=== PATIENT | female | born 1990 | race Caucasian/White ===

== ENCOUNTER 2016-07-08 18:28 | Emergency (ER) | payer OTHER ==
[~2016-07-08 18:28] MED LIST: ALLE25CA OR; CELE20TA OR; NEUR600T OR; NICO21DI4 TD; No Historical Meds; TRAZ100T OR
[2016-07-08] MEDS ORDERED: IBUPROFEN 400 MG TAB As Ordered ONE (19:26)
[2016-07-08] MEDS ORDERED: ACETAMINOPHEN 325 MG TAB As Ordered ONE (19:27)
[2016-07-08 19:48] LABS: ALBUMIN 3.2 GM/DL (3.2-5.2); ALKALINE PHOSPHATASE 106 U/L (45-117); ALT/SGPT 15 U/L (12-78); ANION GAP 8 MEQ/L (8-16); AST/SGOT 10 U/L (15-37); BILIRUBIN,DIRECT 0.2 MG/DL (0.0-0.2); BILIRUBIN,TOTAL 0.6 MG/DL (0.2-1.0); BLOOD UREA NITROGEN 8 MG/DL (7-18); CALCIUM LEVEL 8.5 MG/DL (8.5-10.1); CARBON DIOXIDE LEVEL 26 MEQ/L (21-32); CHLORIDE LEVEL 104 MEQ/L (98-107); CREATININE FOR GFR 0.93 MG/DL (0.55-1.02); GLOMERULAR FILTRATION RATE > 60.0 (>60); GLUCOSE, FASTING 112 MG/DL (70-105); POTASSIUM SERUM 3.6 MEQ/L (3.5-5.1); SODIUM LEVEL 138 MEQ/L (136-145); TOTAL PROTEIN 7.8 GM/DL (6.4-8.2)
[2016-07-08 19:49] LABS: BASO # 0.3 K/mm3 (0.0-0.2); BASO % 1.5 % (0.0-1.0); EOS % 0.2 % (0.0-3.0); LARGE UNSTAINED CELL # 0.2 K/mm3 (0.0-0.4); LARGE UNSTAINED CELL % 1.2 % (0.0-4.0); LYMPH # 2.2 K/mm3 (1.5-6.5); LYMPH % 11.3 % (24.0-44.0); MEAN CORPUSCULAR HEMOGLOBIN 27.8 pg (27.0-33.0); MEAN CORPUSCULAR HGB CONC 33.3 g/dl (32.0-36.5); MEAN CORPUSCULAR VOLUME 83.5 fl (80.0-96.0); MONO # 1.2 K/mm3 (0.0-0.8); MONO % 6.7 % (0.0-5.0); NEUTROPHILS % 79.2 % (36.0-66.0); PLATELET COUNT, AUTOMATED 189 k/mm3 (150-450); RED CELL DISTRIBUTION WIDTH 14.4 % (11.5-14.5); WHITE BLOOD COUNT 17.7 K/mm3 (4.0-10.0)
[2016-07-08 19:52] LABS: CONTROL LINE HCG INT CTR LINE PRESENT
[2016-07-08] MEDS ORDERED: CIPROFLOXACIN 500 MG TAB As Ordered ONE (20:46)
--- NOTE | 2016-07-08 20:57 | EDDOCDS ---
Physician Documentation [facility] [place] [facility] Name: Jessi Perkins Age: 26 yrs Sex: Female : 1990 Arrival Date: 07/08/2016 Time: 18:28 Bed TR8 Private MD: No Pcp Disposition: 07/08/16 20:42 Patient has left against medical advice. Impression: Fever presenting with conditions classified elsewhere, Urinary tract infection, site not specified, Tachycardia, unspecified, Unspecified abdominal pain - RIGHT SIDED. - Patients states they are going to Home/Self Care. - Condition is Unchanged. - Discharge Instructions: Fever, Adult, Urinary Tract Infection. - Prescriptions for Cipro 500 mg Oral Tablet - take 1 tablet by ORAL route every 12 hours; 14 tablet. Medication Reconciliation, Local Pharmacy Hours form. Follow up: Emergency Department; When: As needed; Reason: Worsening of conditions. Follow up: [facility]; When: Call to arrange an appointment; Reason: Recheck today's complaints, Continuance of care, To establish care. - Problem is new. - Symptoms are unchanged. - Notes: IT IS UNCERTAIN IF THE URINARY TRACT INFECTION IS THE ONLY CAUSE OF YOUR SYMPTOMS. YOU REFUSED THE CT SCAN TODAY SO YOUR SYMPTOMS COULD NOT FULLY BE DIAGNOSED. IT IS RECOMMENDED YOU FOLLOW UP WITH PRIMARY CARE OR RETURN TO THE ER SOON POSSIBLE TO FURTHER WORK UP AND DIAGNOSE YOUR SYMPTOMS. Historical: - Allergies: no known allergies; - Home Meds: 1. Depo Shot - PMHx: none; - PSHx: none; - Social history: Smoking status: Patient uses tobacco products, heavy tobacco smoker. No barriers to communication noted. - Family history: Not pertinent. - : The pt / caregiver states he / she is not on anticoagulants. Home medication list is obtained from the patient. - Exposure Risk Screening:: None identified. 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 2 in. (157.48 cm) (R); Pain 7/10; 19:24 BP 120 / 85; Pulse 153; Resp 18; Temp 101.5(O); Pulse Ox 99% on R/A; Pain 7/10; sew 20:43 BP 121 / 76; Pulse 142; Resp 16; Temp 98.4; Pulse Ox 97% on R/A; Pain 7/10; sew 18:31 Body Mass Index 21.58 (53.52 kg, 157.48 cm) mt4 MDM: 18:41 -Blood Culture (Adults Only), peripheral from different site, or from device/port/PICC kr3 etc. if present ordered. 18:41 If pre-RCE wait time >60 minutes, inform reg. staff to do full reg ordered. kr3 18:41 If pt is female >10yo <50yo order UCG ordered. kr3 18:41 Undress patient appropriately for examination ordered. kr3 18:42 -Blood Culture Ordered. EDMS 18:42 BMP Ordered. EDMS 18:42 CBC with Diff Ordered. EDMS 18:42 HCG,Serum Qualitative Ordered. EDMS 18:42 Lipase Ordered. EDMS 18:42 Liver Profile Ordered. EDMS 18:42 Urinalysis Ordered. EDMS 18:42 Urine Culture Ordered. EDMS 18:43 -Blood Culture (Adults Only), peripheral from different site, or from device/port/PICC sew etc. if present complete. 18:43 Vital Signs ordered. dt4 18:43 UCG by Nursing ordered. dt4 18:44 BLOOD CULTURES Ordered. EDMS 18:48 Lactic Acid (Hopkins tube on ice) Ordered. EDMS 19:25 Ibuprofen 400 mg PO once ordered. dt4 19:25 Acetaminophen Tablet 975 mg PO once ordered. dt4 20:28 Vital Signs ordered. dt4 20:40 Ciprofloxacin 500 mg PO once ordered. dt4 20:48 ED course: PT HAD SIGNED AMA PAPERWORK PRIOR TO THIS RN ER EVALUATING THIS PT. PT dt4 ASKED, "SO ARE YOU GOING TO TELL ME WHAT'S WRONG WITH ME?" ADVISED THAT PT HAS A UTI ON LABWORK THAT WAS COLLECTED PRIOR TO PROVIDER EVALUATION. ON EXAM, PT HAS TACHYCARDIA AND RIGHT FLANK PAIN WITH RUQ AND RLQ PAIN. ADVISED UNABLE TO FURTHER EVALUATE FOR GALLSTONES/KIDNEY STONES/PYELONEPHRITIS WITHOUT FURTHER IMAGING. PT STATES HER RIDE IS WAITING FOR HER OUTSIDE AND THAT SHE HAS TO GO AND WILL HAVE TO RETURN TOMORROW. . 20:53 Financial registration complete. [email or web address] 20:54 [facility] Payment Agreement was scanned into [employer] and attached to record. [email or web address] Administered Medications: 19:29 Drug: Ibuprofen 400 mg [ibuprofen 400 mg tablet (1 tabs)] Route: PO; cz 19:29 Drug: Acetaminophen 975 mg [acetaminophen 325 mg tablet (3 tabs)] Route: PO; cz 20:50 Drug: Ciprofloxacin 500 mg [ciprofloxacin 500 mg tablet (1 tabs)] Route: PO; jf3 20:50 Follow up: Response: Pt left department before re-evaluation is appropriate jf3 Signatures: Dispatcher [employer] EDMS Jazmin PetersonRN RN kr3 Karolyn GraceRN RN [facility] Citlali Cedillo Diane, PA-C PAFatimah dt4 Moe LyonsRN RN jf3 Barbara Elizondo, Reg Reg ks16 Farzad Gibbons RN cz The chart was reviewed and I authenticate all verbal orders and agree with the evaluation and treatment provided.Corrections: (The following items were deleted from the chart) 18:38 18:36 Home Meds: none; [facility] Attachments: 20:54 [facility] Payment Agreement [email or web address] MTDD
--- NOTE | 2016-07-08 20:57 | EDDOCDS ---
Nurse's Notes [facility] Name: Jessi Perkins Age: 26 yrs Sex: Female : 1990 Arrival Date: 07/08/2016 Time: 18:28 Bed TR8 Private MD: No Pcp Diagnosis: Fever presenting with conditions classified elsewhere;Urinary tract infection, site not specified;Tachycardia, unspecified;Unspecified abdominal pain-RIGHT SIDED Presentation: 07/08 18:35 Presenting complaint: Patient states: right side pain for past three days, denies [facility] urinary symptoms. Acute neurological deficits are not present. Mechanism of Injury: No Mechanism of Injury. Adult Sepsis Screening: The patient does not have new or worsening altered mentation. Patient's respiratory rate is less than 22. Systolic blood pressure is greater than 100. Patient has a qSOFA score of 0- Negative Sepsis Screen. Suicide/Homicide risk assessment- the patient denies having any suicidal and/or homicidal ideations and does not present with any other emotional, behavioral or mental health complaints. Status: Patient is not a support services manager or dependent. Transition of care: patient was not received from another setting of care. 18:35 Acuity: ADRIANNE Level 3 [facility] 18:35 Method Of Arrival: Walkin/Carried/Asstd [facility] Triage Assessment: 18:36 General: Appears in no apparent distress, uncomfortable, Behavior is appropriate for [facility] age, cooperative. Pain: Location: posterior aspect of right lateral abdomen and anterior aspect of right lateral abdomen Pain currently is 7 out of 10 on a pain scale. HIV screening NA for this visit Offered previously. Respiratory: Airway is patent Respiratory effort is even, unlabored, Respiratory pattern is regular, symmetrical. GI: No deficits noted. : No deficits noted. Musculoskeletal: Range of motion intact in all extremities. 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 Depo Shot - PMHx: none; - PSHx: none; - Social history: Smoking status: Patient uses tobacco products, heavy tobacco smoker. No barriers to communication noted. - Family history: Not pertinent. - : The pt / caregiver states he / she is not on anticoagulants. Home medication list is obtained from the patient. - Exposure Risk Screening:: None identified. Screenin:50 Screening information is obtained from the patient. Fall risk: No risks identified. jf3 Assistance ADL's: requires no assistance with activities of daily living. Abuse/DV Screen: The patient / caregiver reports he/she is: not in a situation that causes fear, pain or injury. Nutritional screening: No deficits noted. Advance Directives: There is no active DNR order. home support is adequate. Assessment: 20:50 General: Appears in no apparent distress, comfortable, Behavior is cooperative. jf3 Neurological: Level of Consciousness is awake, alert, Oriented to person, place, time. Cardiovascular: Capillary refill < 3 seconds. Respiratory: Airway is patent Respiratory effort is even, unlabored, Respiratory pattern is regular, symmetrical. Derm: Skin is pink, warm & dry. Social Work Consult: 20:55 LWBS/AMA AMA: Patient is refusing further stabilizing treatment at [facility], although jfb offered treatment regardless of method of payment or ability to pay. Patient is aware that this action is being undertaken against the advice of the medical staff at [facility]. Pt. has capacity to understand the potential consequences of this choice. pt did notify ED staff. Patient / guardian did sign Refusal of Services form. Vital Signs: 18:31 BP 143 / 88 LA Sitting (auto/reg); Pulse 154 LA; Resp 18 S; Temp 100.5(O); Pulse Ox mt4 100% on R/A; Weight 53.52 kg (R); Height 5 ft. 2 in. (157.48 cm) (R); Pain 7/10; 19:24 BP 120 / 85; Pulse 153; Resp 18; Temp 101.5(O); Pulse Ox 99% on R/A; Pain 7/10; sew 20:43 BP 121 / 76; Pulse 142; Resp 16; Temp 98.4; Pulse Ox 97% on R/A; Pain 7/10; sew 18:31 Body Mass Index 21.58 (53.52 kg, 157.48 cm) mt4 Vitals: 18:31 Log In Time: July 08, 2016 at 18:28. RN notified that patient meets Red Flag mt4 criteria. ED Course: 18:30 Patient visited by Clara Alexander. mt4 18:30 Patient moved to Waiting mt4 18:30 Patient moved to Pre RCE mt4 18:31 No Pcp is Private Physician. mt4 18:36 Triage Initiated [facility] 18:42 Patient moved to PR sew 19:18 Patient visited by Citlali Cedillo. sew 19:18 Lactic Acid (Hopkins tube on ice) Sent. sew 19:18 BLOOD CULTURES Sent. sew 19:18 -Blood Culture Sent. sew 19:18 BMP Sent. sew 19:18 CBC with Diff Sent. sew 19:18 HCG,Serum Qualitative Sent. sew 19:18 Lipase Sent. sew 19:18 Liver Profile Sent. sew 19:18 Urinalysis Sent. sew 19:18 Urine Culture Sent. sew 19:18 Labs drawn. (by ED staff). Sent per order to lab. Labs/Blood culture drawn Urine sew collected. Clean catch specimen. Urine specimen sent to lab. 19:24 Patient visited by Citlali Cedillo. sew 19:30 Patient moved to Pre RCE cz 20:25 Patient moved to Triage 1 cz 20:26 Hannah Spears PA-C is [facility]. dt4 20:26 Joshua Dunbar DO is Attending Physician. dt4 20:26 Patient visited by Hannah Spears PA-C. dt4 20:42 [facility] is Referral Physician. dt4 20:44 Patient visited by Citlali Cedillo. sew 20:45 Patient moved to TR8 cz 20:50 The patient / caregiver is instructed regarding the plan of care and ED course. jf3 20:50 No IV's were initiated during this patient's visit. No procedures done that require jf3 assistance. 20:52 Patient name changed from Jessi\S\\S\Perkins\S\ to Jessi\S\ \S\Perkins. EDMS 20:54 [facility] Payment Agreement was scanned into [employer] and attached to record. [email or web address] Administered Medications: 19:29 Drug: Ibuprofen 400 mg [ibuprofen 400 mg tablet (1 tabs)] Route: PO; cz 19:29 Drug: Acetaminophen 975 mg [acetaminophen 325 mg tablet (3 tabs)] Route: PO; cz 20:50 Drug: Ciprofloxacin 500 mg [ciprofloxacin 500 mg tablet (1 tabs)] Route: PO; jf3 20:50 Follow up: Response: Pt left department before re-evaluation is appropriate jf3 Order Results: Lab Order: BAM; SPEC'M 07/08/16 19:12 Test: GLUCOSE, FASTING; Value: 112; Range: 70-105; Abnormal: Above high normal; Units: MG/DL; Status: F Test: BLOOD UREA NITROGEN; Value: 8; Range: 7-18; Units: MG/DL; Status: F Test: CREATININE FOR GFR; Value: 0.93; Range: 0.55-1.02; Units: MG/DL; Status: F Test: GLOMERULAR FILTRATION RATE; Value: > 60.0; Range: >60; Status: F Test: SODIUM LEVEL; Value: 138; Range: 136-145; Units: MEQ/L; Status: F Test: POTASSIUM SERUM; Value: 3.6; Range: 3.5-5.1; Units: MEQ/L; Status: F Test: CHLORIDE LEVEL; Value: 104; Range: 98-107; Units: MEQ/L; Status: F Test: CARBON DIOXIDE LEVEL; Value: 26; Range: 21-32; Units: MEQ/L; Status: F Test: ANION GAP; Value: 8; Range: 8-16; Units: MEQ/L; Status: F Test: CALCIUM LEVEL; Value: 8.5; Range: 8.5-10.1; Units: MG/DL; Status: F Test Note: ; Units are mL/min/1.73 m2 Chronic Kidney Disease Staging per NKF: Stage I & II GFR >=60 Normal to Mildly Decreased Stage III GFR 30-59 Moderately Decreased Stage IV GFR 15-29 Severely Decreased Stage V GFR <15 Very Little GFR Left ESRD GFR <15 on TRUCK DRIVING Lab Order: CBC with Diff; SPEC'M 07/08/16 19:14 Test: WHITE BLOOD COUNT; Value: 17.7; Range: 4.0-10.0; Abnormal: Above high normal; Units: K/mm3; Status: F Test: RED BLOOD COUNT; Value: 5.05; Range: 4.00-5.40; Units: M/mm3; Status: F Test: HEMOGLOBIN; Value: 14.0; Range: 12.0-16.0; Units: g/dl; Status: F Test: HEMATOCRIT; Value: 42.2; Range: 36.0-47.0; Units: %; Status: F Test: MEAN CORPUSCULAR VOLUME; Value: 83.5; Range: 80.0-96.0; Units: fl; Status: F Test: MEAN CORPUSCULAR HEMOGLOBIN; Value: 27.8; Range: 27.0-33.0; Units: pg; Status: F Test: MEAN CORPUSCULAR HGB CONC; Value: 33.3; Range: 32.0-36.5; Units: g/dl; Status: F Test: RED CELL DISTRIBUTION WIDTH; Value: 14.4; Range: 11.5-14.5; Units: %; Status: F Test: PLATELET COUNT, AUTOMATED; Value: 189; Range: 150-450; Units: k/mm3; Status: F Test: NEUTROPHILS %; Value: 79.2; Range: 36.0-66.0; Abnormal: Above high normal; Units: %; Status: F Test: LYMPH %; Value: 11.3; Range: 24.0-44.0; Abnormal: Below low normal; Units: %; Status: F Test: MONO %; Value: 6.7; Range: 0.0-5.0; Abnormal: Above high normal; Units: %; Status: F Test: EOS %; Value: 0.2; Range: 0.0-3.0; Units: %; Status: F Test: BASO %; Value: 1.5; Range: 0.0-1.0; Abnormal: Above high normal; Units: %; Status: F Test: LARGE UNSTAINED CELL %; Value: 1.2; Range: 0.0-4.0; Units: %; Status: F Test: NEUTROPHILS #; Value: 14.0; Range: 1.8-7.7; Abnormal: Above high normal; Units: K/mm3; Status: F Test: LYMPH #; Value: 2.2; Range: 1.5-6.5; Units: K/mm3; Status: F Test: MONO #; Value: 1.2; Range: 0.0-0.8; Abnormal: Above high normal; Units: K/mm3; Status: F Test: EOS #; Value: 0.0; Range: 0.0-0.50; Units: K/mm3; Status: F Test: BASO #; Value: 0.3; Range: 0.0-0.2; Abnormal: Above high normal; Units: K/mm3; Status: F Test: LARGE UNSTAINED CELL #; Value: 0.2; Range: 0.0-0.4; Units: K/mm3; Status: F Lab Order: HCG,Serum Qualitative; [facility] 07/08/16 19:12 Test: HCG, SERUM QUALITATIVE; Value: NEGATIVE; Range: NEGATIVE; Status: F Lab Order: Lipase; [facility] 07/08/16 19:12 Test: LIPASE; Value: 42; Range: 73-393; Abnormal: Below low normal; Units: U/L; Status: F Lab Order: Liver Profile; [facility] 07/08/16 19:12 Test: AST/SGOT; Value: 10; Range: 15-37; Abnormal: Below low normal; Units: U/L; Status: F Test: ALT/SGPT; Value: 15; Range: 12-78; Units: U/L; Status: F Test: ALKALINE PHOSPHATASE; Value: 106; Range: 45-117; Units: U/L; Status: F Test: BILIRUBIN,TOTAL; Value: 0.6; Range: 0.2-1.0; Units: MG/DL; Status: F Test: BILIRUBIN,DIRECT; Value: 0.2; Range: 0.0-0.2; Units: MG/DL; Status: F Test: TOTAL PROTEIN; Value: 7.8; Range: 6.4-8.2; Units: GM/DL; Status: F Test: ALBUMIN; Value: 3.2; Range: 3.2-5.2; Units: GM/DL; Status: F Test: ALBUMIN/GLOBULIN RATIO; Value: 0.70; Range: 1.00-1.93; Abnormal: Below low normal; Status: F Lab Order: Urinalysis; [facility] 07/08/16 19:12 Test: APPEARANCE, URINE; Value: HAZY; Range: CLEAR; Status: F Test: COLOR, URINE; Value: LEXIS; Range: YELLOW; Status: F Test: PH,URINE; Value: 6.0; Range: 5.0-9.0; Units: UNITS; Status: F Test: SPECIFIC GRAVITY URINE AUTO; Value: 1.020; Range: 1.002-1.035; Status: F Test: PROTEIN, URINE AUTO; Value: 1+; Range: NEGATIVE; Abnormal: Above high normal; Units: mg/dL; Status: F Test: GLUCOSE, URINE (UA) AUTO; Value: NEGATIVE; Range: NEGATIVE; Units: mg/dL; Status: F Test: KETONE, URINE AUTO; Value: NEGATIVE; Range: NEGATIVE; Units: mg/dL; Status: F Test: UROBILINOGEN, URINE AUTO; Value: 4.0; Range: 0.0-2.0; Abnormal: Above high normal; Units: mg/dL; Status: F Test: BILIRUBIN, URINE AUTO; Value: NEGATIVE; Range: NEGATIVE; Status: F Test: NITRITE, URINE AUTO; Value: NEGATIVE; Range: NEGATIVE; Status: F Test: LEUKOCYTE ESTERASE, URINE AUTO; Value: TRACE; Range: NEGATIVE; Abnormal: Above high normal; Status: F Test: BLOOD, URINE BLOOD; Value: NEGATIVE; Range: NEGATIVE; Status: F Test: WBC, URINE AUTO; Value: 33; Range: 0-3; Abnormal: Above high normal; Units: /HPF; Status: F Test: RBC, URINE AUTO; Value: 3; Range: 0-3; Units: /HPF; Status: F Test: BACTERIA, URINE AUTO; Value: 2+; Range: NEGATIVE; Abnormal: Above high normal; Status: F Test: SQUAMOUS EPITHELIAL CELL UR AU; Value: 22; Range: 0-6; Units: /HPF; Status: F Test: MUCUS, URINE; Value: MODERATE; Range: NEGATIVE; Status: F Test: HYALINE CAST, URINE AUTO; Value: 0; Range: 0-1; Units: /LPF; Status: F Lab Order: Lactic Acid (Hopkins tube on ice); SPEC'M 07/08/16 19:12 Test: LACTIC ACID LEVEL, LACTATE; Value: 1.6; Range: 0.4-2.0; Units: MMOL/L; Status: F Outcome: 20:42 Patient left against medical advice. dt4 20:52 Discharge Assessment: patient administered narcotics - no. The following High Risk 3 Discharge criteria are identified: Yes, PSA notified, charge nurse notified. The patient is leaving AMA: AMA form signed, Notification of AMA status is made to the charge nurse, the mental health social worker. Condition: stable. Discharge instructions given to patient, Instructed on discharge instructions, follow up and referral plans. medication usage, Demonstrated understanding of instructions, medications. No special radiology studies were completed. Property :Personal belongings accompany Pt. 20:56 Patient left the ED. jf3 Signatures: Dispatcher [employer] EDMS Farzad Gibbons, PRO RN cindi Alexander, Clara mt4 Birdie Spears, PSA PSA Karolyn George RN RN [facility] Mamadou, Hannah Artis, PAFatimah PAFatimah dt4 Moe Lyons RN RN jf3 Barbara Elizondo, Reg Reg [email or web address] Corrections: (The following items were deleted from the chart) 18:38 18:36 Home Meds: none; [facility] MTDD
--- NOTE | 2016-07-10 21:57 | EDDOCDS ---
Physician Documentation [facility] Name: Jessi Perkins Age: 26 yrs Sex: Female : 1990 Arrival Date: 07/08/2016 Time: 18:28 Bed TR8 Private MD: No Pcp Disposition: 07/08/16 20:42 Patient has left against medical advice. Impression: Fever presenting with conditions classified elsewhere, Urinary tract infection, site not specified, Tachycardia, unspecified, Unspecified abdominal pain - RIGHT SIDED. - Patients states they are going to Home/Self Care. - Condition is Unchanged. - Discharge Instructions: Fever, Adult, Urinary Tract Infection. - Prescriptions for Cipro 500 mg Oral Tablet - take 1 tablet by ORAL route every 12 hours; 14 tablet. Medication Reconciliation, Local Pharmacy Hours form. Follow up: Emergency Department; When: As needed; Reason: Worsening of conditions. Follow up: [facility]; When: Call to arrange an appointment; Reason: Recheck today's complaints, Continuance of care, To establish care. - Problem is new. - Symptoms are unchanged. - Notes: IT IS UNCERTAIN IF THE URINARY TRACT INFECTION IS THE ONLY CAUSE OF YOUR SYMPTOMS. YOU REFUSED THE CT SCAN TODAY SO YOUR SYMPTOMS COULD NOT FULLY BE DIAGNOSED. IT IS RECOMMENDED YOU FOLLOW UP WITH PRIMARY CARE OR RETURN TO THE ER SOON POSSIBLE TO FURTHER WORK UP AND DIAGNOSE YOUR SYMPTOMS. Historical: - Allergies: no known allergies; - Home Meds: 1. Depo Shot - PMHx: none; - PSHx: none; - Social history: Smoking status: Patient uses tobacco products, heavy tobacco smoker. No barriers to communication noted. - Family history: Not pertinent. - : The pt / caregiver states he / she is not on anticoagulants. Home medication list is obtained from the patient. - Exposure Risk Screening:: None identified. 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 2 in. (157.48 cm) (R); Pain 7/10; 19:24 BP 120 / 85; Pulse 153; Resp 18; Temp 101.5(O); Pulse Ox 99% on R/A; Pain 7/10; sew 20:43 BP 121 / 76; Pulse 142; Resp 16; Temp 98.4; Pulse Ox 97% on R/A; Pain 7/10; sew 18:31 Body Mass Index 21.58 (53.52 kg, 157.48 cm) mt4 MDM: 18:41 -Blood Culture (Adults Only), peripheral from different site, or from device/port/PICC kr3 etc. if present ordered. 18:41 If pre-RCE wait time >60 minutes, inform reg. staff to do full reg ordered. kr3 18:41 If pt is female >10yo <50yo order UCG ordered. kr3 18:41 Undress patient appropriately for examination ordered. kr3 18:42 -Blood Culture Ordered. EDMS 18:42 BMP Ordered. EDMS 18:42 CBC with Diff Ordered. EDMS 18:42 HCG,Serum Qualitative Ordered. EDMS 18:42 Lipase Ordered. EDMS 18:42 Liver Profile Ordered. EDMS 18:42 Urinalysis Ordered. EDMS 18:42 Urine Culture Ordered. EDMS 18:43 -Blood Culture (Adults Only), peripheral from different site, or from device/port/PICC sew etc. if present complete. 18:43 Vital Signs ordered. dt4 18:43 UCG by Nursing ordered. dt4 18:44 BLOOD CULTURES Ordered. EDMS 18:48 Lactic Acid (Hopkins tube on ice) Ordered. EDMS 19:25 Ibuprofen 400 mg PO once ordered. dt4 19:25 Acetaminophen Tablet 975 mg PO once ordered. dt4 20:28 Vital Signs ordered. dt4 20:40 Ciprofloxacin 500 mg PO once ordered. dt4 20:48 ED course: PT HAD SIGNED AMA PAPERWORK PRIOR TO THIS DEVELOPMENT REPRESENTATIVE EVALUATING THIS PT. PT dt4 ASKED, "SO ARE YOU GOING TO TELL ME WHAT'S WRONG WITH ME?" ADVISED THAT PT HAS A UTI ON LABWORK THAT WAS COLLECTED PRIOR TO PROVIDER EVALUATION. ON EXAM, PT HAS TACHYCARDIA AND RIGHT FLANK PAIN WITH RUQ AND RLQ PAIN. ADVISED UNABLE TO FURTHER EVALUATE FOR GALLSTONES/KIDNEY STONES/PYELONEPHRITIS WITHOUT FURTHER IMAGING. PT STATES HER RIDE IS WAITING FOR HER OUTSIDE AND THAT SHE HAS TO GO AND WILL HAVE TO RETURN TOMORROW. . 20:53 Financial registration complete. [email or web address] 20:54 [facility] Agreement was scanned into [employer] and attached to record. [email or web address] 07/09 15:49 T-Sheet-- Draft Copy was scanned into [employer] and attached to record. klr 15:56 Refusal of Services was scanned into [employer] and attached to record. kf3 Administered Medications: 07/08 19:29 Drug: Ibuprofen 400 mg [ibuprofen 400 mg tablet (1 tabs)] Route: PO; cz 19:29 Drug: Acetaminophen 975 mg [acetaminophen 325 mg tablet (3 tabs)] Route: PO; cz 20:50 Drug: Ciprofloxacin 500 mg [ciprofloxacin 500 mg tablet (1 tabs)] Route: PO; jf3 20:50 Follow up: Response: Pt left department before re-evaluation is appropriate jf3 Signatures: Dispatcher [employer] EDJazmin LamaRN RN kr3 Abelardo Cheung, Reg Reg kf3 Karolyn Grace RN RN [facility] Citlali Cedillo Diane, PA-C PA-C dt4 Moe Lyons RN RN jf3 Barbara Elizondo, Reg Reg ks16 Iman Duran Calvin RN cz The chart was reviewed and I authenticate all verbal orders and agree with the evaluation and treatment provided.Corrections: (The following items were deleted from the chart) 18:38 18:36 Home Meds: none; formerly [facility] Attachments: 20:54 [facility] Payment Agreement 07/09 15:49 T-Sheet-- Draft Copy klr Chart Complete MTDD
--- NOTE | 2016-07-10 21:57 | EDDOCDS ---
Nurse's Notes [facility] Name: Jessi Perkins Age: 26 yrs Sex: Female : 1990 Arrival Date: 07/08/2016 Time: 18:28 Bed TR8 Private MD: No Pcp Diagnosis: Fever presenting with conditions classified elsewhere;Urinary tract infection, site not specified;Tachycardia, unspecified;Unspecified abdominal pain-RIGHT SIDED Presentation: 07/08 18:35 Presenting complaint: Patient states: right side pain for past three days, denies [facility] urinary symptoms. Acute neurological deficits are not present. Mechanism of Injury: No Mechanism of Injury. Adult Sepsis Screening: The patient does not have new or worsening altered mentation. Patient's respiratory rate is less than 22. Systolic blood pressure is greater than 100. Patient has a qSOFA score of 0- Negative Sepsis Screen. Suicide/Homicide risk assessment- the patient denies having any suicidal and/or homicidal ideations and does not present with any other emotional, behavioral or mental health complaints. Status: Patient is not a human services case manager or dependent. Transition of care: patient was not received from another setting of care. 18:35 Acuity: [facility] 18:35 Method Of Arrival: [facility]in[facility]Carried[facility] Triage Assessment: 18:36 General: Appears in no apparent distress, uncomfortable, Behavior is appropriate for [facility] age, cooperative. Pain: Location: posterior aspect of right lateral abdomen and anterior aspect of right lateral abdomen Pain currently is 7 out of 10 on a pain scale. HIV screening NA for this visit Offered previously. Respiratory: Airway is patent Respiratory effort is even, unlabored, Respiratory pattern is regular, symmetrical. GI: No deficits noted. : No deficits noted. Musculoskeletal: Range of motion intact in all extremities. 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 Depo Shot - PMHx: none; - PSHx: none; - Social history: Smoking status: Patient uses tobacco products, heavy tobacco smoker. No barriers to communication noted. - Family history: Not pertinent. - : The pt / caregiver states he / she is not on anticoagulants. Home medication list is obtained from the patient. - Exposure Risk Screening:: None identified. Screenin:50 Screening information is obtained from the patient. Fall risk: No risks identified. jf3 Assistance ADL's: requires no assistance with activities of daily living. Abuse/DV Screen: The patient / caregiver reports he/she is: not in a situation that causes fear, pain or injury. Nutritional screening: No deficits noted. Advance Directives: There is no active DNR order. home support is adequate. Assessment: 20:50 General: Appears in no apparent distress, comfortable, Behavior is cooperative. jf3 Neurological: Level of Consciousness is awake, alert, Oriented to person, place, time. Cardiovascular: Capillary refill < 3 seconds. Respiratory: Airway is patent Respiratory effort is even, unlabored, Respiratory pattern is regular, symmetrical. Derm: Skin is pink, warm & dry. Social Work Consult: 20:55 LWBS/AMA AMA: Patient is refusing further stabilizing treatment at [facility], although jfb offered treatment regardless of method of payment or ability to pay. Patient is aware that this action is being undertaken against the advice of the medical staff at [facility]. Pt. has capacity to understand the potential consequences of this choice. pt did notify ED staff. Patient / guardian did sign Refusal of Services form. Vital Signs: 18:31 BP 143 / 88 LA Sitting (auto/reg); Pulse 154 LA; Resp 18 S; Temp 100.5(O); Pulse Ox mt4 100% on R/A; Weight 53.52 kg (R); Height 5 ft. 2 in. (157.48 cm) (R); Pain 7/10; 19:24 BP 120 / 85; Pulse 153; Resp 18; Temp 101.5(O); Pulse Ox 99% on R/A; Pain 7/10; sew 20:43 BP 121 / 76; Pulse 142; Resp 16; Temp 98.4; Pulse Ox 97% on R/A; Pain 7/10; sew 18:31 Body Mass Index 21.58 (53.52 kg, 157.48 cm) mt4 Vitals: 18:31 Log In Time: July 08, 2016 at 18:28. RN notified that patient meets Red Flag mt4 criteria. ED Course: 18:30 Patient visited by Clara Alexander. mt4 18:30 Patient moved to Waiting mt4 18:30 Patient moved to Pre RCE mt4 18:31 No Pcp is Private Physician. mt4 18:36 Triage Initiated [facility] 18:42 Patient moved to PR sew 19:18 Patient visited by Citlali Cedillo. sew 19:18 Lactic Acid (Hopkins tube on ice) Sent. sew 19:18 BLOOD CULTURES Sent. sew 19:18 -Blood Culture Sent. sew 19:18 BMP Sent. sew 19:18 CBC with Diff Sent. sew 19:18 HCG,Serum Qualitative Sent. sew 19:18 Lipase Sent. sew 19:18 Liver Profile Sent. sew 19:18 Urinalysis Sent. sew 19:18 Urine Culture Sent. sew 19:18 Labs drawn. (by ED staff). Sent per order to lab. Labs/Blood culture drawn Urine sew collected. Clean catch specimen. Urine specimen sent to lab. 19:24 Patient visited by Citlali Cedillo. sew 19:30 Patient moved to Pre RCE cz 20:25 Patient moved to Triage 1 cz 20:26 Hannah Spears PA-C is PHCP. dt4 20:26 Joshua Dunbar DO is Attending Physician. dt4 20:26 Patient visited by Hannah Spears PA-C. dt4 20:42 [facility] is Referral Physician. dt4 20:44 Patient visited by Citlali Cedillo. sew 20:45 Patient moved to TR8 cz 20:50 The patient / caregiver is instructed regarding the plan of care and ED course. jf3 20:50 No IV's were initiated during this patient's visit. No procedures done that require jf3 assistance. 20:52 Patient name changed from Jessi\S\\S\Perkins\S\ to Jessi\S\ \S\Perkins. EDMS 20:54 [facility] [place] Payment Agreement was scanned into [employer] and attached to record. [email or web address] 07/09 15:49 T-Sheet-- Draft Copy was scanned into [employer] and attached to record. klr 15:56 Refusal of Services was scanned into [employer] and attached to record. kf3 19:22 Patient name changed from Jessi\S\ \S\Perkins\S\ to Jessi\S\Donte\S\Perkins. EDMS Administered Medications: 07/08 19:29 Drug: Ibuprofen 400 mg [ibuprofen 400 mg tablet (1 tabs)] Route: PO; cz 19:29 Drug: Acetaminophen 975 mg [acetaminophen 325 mg tablet (3 tabs)] Route: PO; cz 20:50 Drug: Ciprofloxacin 500 mg [ciprofloxacin 500 mg tablet (1 tabs)] Route: PO; jf3 20:50 Follow up: Response: Pt left department before re-evaluation is appropriate jf3 Attachments: 15:56 Refusal of Services kf3 Order Results: Lab Order: -Blood Culture; SPEC'M 07/08/16 19:14 Test: BLOOD CULTURE; Value: No growth after 24 hours . All specimens observed; Status: F Test: BLOOD CULTURE; Value: for 5 days. Results final at that time.; Status: F Test: BLOOD CULTURE; Value: No Growth after 48 hours. All Specimens observed; Status: F Test: BLOOD CULTURE; Value: for 7 days. Results final at that time.; Status: F Lab Order: BMP; SPEC'M 07/08/16 19:12 Test: GLUCOSE, FASTING; Value: 112; Range: 70-105; Abnormal: Above high normal; Units: MG/DL; Status: F Test: BLOOD UREA NITROGEN; Value: 8; Range: 7-18; Units: MG/DL; Status: F Test: CREATININE FOR GFR; Value: 0.93; Range: 0.55-1.02; Units: MG/DL; Status: F Test: GLOMERULAR FILTRATION RATE; Value: > 60.0; Range: >60; Status: F Test: SODIUM LEVEL; Value: 138; Range: 136-145; Units: MEQ/L; Status: F Test: POTASSIUM SERUM; Value: 3.6; Range: 3.5-5.1; Units: MEQ/L; Status: F Test: CHLORIDE LEVEL; Value: 104; Range: 98-107; Units: MEQ/L; Status: F Test: CARBON DIOXIDE LEVEL; Value: 26; Range: 21-32; Units: MEQ/L; Status: F Test: ANION GAP; Value: 8; Range: 8-16; Units: MEQ/L; Status: F Test: CALCIUM LEVEL; Value: 8.5; Range: 8.5-10.1; Units: MG/DL; Status: F Test Note: ; Units are mL/min/1.73 m2 Chronic Kidney Disease Staging per NKF: Stage I & II GFR >=60 Normal to Mildly Decreased Stage III GFR 30-59 Moderately Decreased Stage IV GFR 15-29 Severely Decreased Stage V GFR <15 Very Little GFR Left ESRD GFR <15 on BACTERIOLOGIST FOOD Lab Order: CBC with Diff; SPEC'M 07/08/16 19:14 Test: WHITE BLOOD COUNT; Value: 17.7; Range: 4.0-10.0; Abnormal: Above high normal; Units: K/mm3; Status: F Test: RED BLOOD COUNT; Value: 5.05; Range: 4.00-5.40; Units: M/mm3; Status: F Test: HEMOGLOBIN; Value: 14.0; Range: 12.0-16.0; Units: g/dl; Status: F Test: HEMATOCRIT; Value: 42.2; Range: 36.0-47.0; Units: %; Status: F Test: MEAN CORPUSCULAR VOLUME; Value: 83.5; Range: 80.0-96.0; Units: fl; Status: F Test: MEAN CORPUSCULAR HEMOGLOBIN; Value: 27.8; Range: 27.0-33.0; Units: pg; Status: F Test: MEAN CORPUSCULAR HGB CONC; Value: 33.3; Range: 32.0-36.5; Units: g/dl; Status: F Test: RED CELL DISTRIBUTION WIDTH; Value: 14.4; Range: 11.5-14.5; Units: %; Status: F Test: PLATELET COUNT, AUTOMATED; Value: 189; Range: 150-450; Units: k/mm3; Status: F Test: NEUTROPHILS %; Value: 79.2; Range: 36.0-66.0; Abnormal: Above high normal; Units: %; Status: F Test: LYMPH %; Value: 11.3; Range: 24.0-44.0; Abnormal: Below low normal; Units: %; Status: F Test: MONO %; Value: 6.7; Range: 0.0-5.0; Abnormal: Above high normal; Units: %; Status: F Test: EOS %; Value: 0.2; Range: 0.0-3.0; Units: %; Status: F Test: BASO %; Value: 1.5; Range: 0.0-1.0; Abnormal: Above high normal; Units: %; Status: F Test: LARGE UNSTAINED CELL %; Value: 1.2; Range: 0.0-4.0; Units: %; Status: F Test: NEUTROPHILS #; Value: 14.0; Range: 1.8-7.7; Abnormal: Above high normal; Units: K/mm3; Status: F Test: LYMPH #; Value: 2.2; Range: 1.5-6.5; Units: K/mm3; Status: F Test: MONO #; Value: 1.2; Range: 0.0-0.8; Abnormal: Above high normal; Units: K/mm3; Status: F Test: EOS #; Value: 0.0; Range: 0.0-0.50; Units: K/mm3; Status: F Test: BASO #; Value: 0.3; Range: 0.0-0.2; Abnormal: Above high normal; Units: K/mm3; Status: F Test: LARGE UNSTAINED CELL #; Value: 0.2; Range: 0.0-0.4; Units: K/mm3; Status: F Lab Order: HCG,Serum Qualitative; [facility] 07/08/16 19:12 Test: HCG, SERUM QUALITATIVE; Value: NEGATIVE; Range: NEGATIVE; Status: F Lab Order: Lipase; [facility] 07/08/16 19:12 Test: LIPASE; Value: 42; Range: 73-393; Abnormal: Below low normal; Units: U/L; Status: F Lab Order: Liver Profile; [facility] 07/08/16 19:12 Test: AST/SGOT; Value: 10; Range: 15-37; Abnormal: Below low normal; Units: U/L; Status: F Test: ALT/SGPT; Value: 15; Range: 12-78; Units: U/L; Status: F Test: ALKALINE PHOSPHATASE; Value: 106; Range: 45-117; Units: U/L; Status: F Test: BILIRUBIN,TOTAL; Value: 0.6; Range: 0.2-1.0; Units: MG/DL; Status: F Test: BILIRUBIN,DIRECT; Value: 0.2; Range: 0.0-0.2; Units: MG/DL; Status: F Test: TOTAL PROTEIN; Value: 7.8; Range: 6.4-8.2; Units: GM/DL; Status: F Test: ALBUMIN; Value: 3.2; Range: 3.2-5.2; Units: GM/DL; Status: F Test: ALBUMIN/GLOBULIN RATIO; Value: 0.70; Range: 1.00-1.93; Abnormal: Below low normal; Status: F Lab Order: Urinalysis; SPEC'M 07/08/16 19:12 Test: APPEARANCE, URINE; Value: HAZY; Range: CLEAR; Status: F Test: COLOR, URINE; Value: LEXIS; Range: YELLOW; Status: F Test: PH,URINE; Value: 6.0; Range: 5.0-9.0; Units: UNITS; Status: F Test: SPECIFIC GRAVITY URINE AUTO; Value: 1.020; Range: 1.002-1.035; Status: F Test: PROTEIN, URINE AUTO; Value: 1+; Range: NEGATIVE; Abnormal: Above high normal; Units: mg/dL; Status: F Test: GLUCOSE, URINE (UA) AUTO; Value: NEGATIVE; Range: NEGATIVE; Units: mg/dL; Status: F Test: KETONE, URINE AUTO; Value: NEGATIVE; Range: NEGATIVE; Units: mg/dL; Status: F Test: UROBILINOGEN, URINE AUTO; Value: 4.0; Range: 0.0-2.0; Abnormal: Above high normal; Units: mg/dL; Status: F Test: BILIRUBIN, URINE AUTO; Value: NEGATIVE; Range: NEGATIVE; Status: F Test: NITRITE, URINE AUTO; Value: NEGATIVE; Range: NEGATIVE; Status: F Test: LEUKOCYTE ESTERASE, URINE AUTO; Value: TRACE; Range: NEGATIVE; Abnormal: Above high normal; Status: F Test: BLOOD, URINE BLOOD; Value: NEGATIVE; Range: NEGATIVE; Status: F Test: WBC, URINE AUTO; Value: 33; Range: 0-3; Abnormal: Above high normal; Units: /HPF; Status: F Test: RBC, URINE AUTO; Value: 3; Range: 0-3; Units: /HPF; Status: F Test: BACTERIA, URINE AUTO; Value: 2+; Range: NEGATIVE; Abnormal: Above high normal; Status: F Test: SQUAMOUS EPITHELIAL CELL UR AU; Value: 22; Range: 0-6; Units: /HPF; Status: F Test: MUCUS, URINE; Value: MODERATE; Range: NEGATIVE; Status: F Test: HYALINE CAST, URINE AUTO; Value: 0; Range: 0-1; Units: /LPF; Status: F Lab Order: Urine Culture; SPEC'M 07/08/16 19:12 Test: URINE CULTURE; Value: URINE CULTURE RESULT NO GROWTH; Status: F Lab Order: BLOOD CULTURES; SPEC'M 07/08/16 19:11 Test: BLOOD CULTURE; Value: No growth after 24 hours . All specimens observed; Status: F Test: BLOOD CULTURE; Value: for 5 days. Results final at that time.; Status: F Test: BLOOD CULTURE; Value: No Growth after 48 hours. All Specimens observed; Status: F Test: BLOOD CULTURE; Value: for 7 days. Results final at that time.; Status: F Lab Order: Lactic Acid (Hopkins tube on ice); SPEC'M 07/08/16 19:12 Test: LACTIC ACID LEVEL, LACTATE; Value: 1.6; Range: 0.4-2.0; Units: MMOL/L; Status: F Outcome: 07/08 20:42 Patient left against medical advice. dt4 20:52 Discharge Assessment: patient administered narcotics - no. The following High Risk 3 Discharge criteria are identified: Yes, PSA notified, charge nurse notified. The patient is leaving AMA: AMA form signed, Notification of AMA status is made to the charge nurse, the social worker assistant. Condition: stable. Discharge instructions given to patient, Instructed on discharge instructions, follow up and referral plans. medication usage, Demonstrated understanding of instructions, medications. No special radiology studies were completed. Property :Personal belongings accompany Pt. 20:56 Patient left the ED. jf3 Signatures: Dispatcher Med[employer] EDMS Farzad Gibbons RN RN cz Fiddler, Kris, Reg Reg kf3 Benjamin, Clara mt4 SpearsBirdie, PSA PSA jfb Karolyn Grace RN [facility] Citlali Cedillo Diane PAFatimah PAFatimah dt4 Moe Lyons RN RN jf3 Barbara Elizondo, Reg Reg ks16 Iman Duran Corrections: (The following items were deleted from the chart) 18:38 18:36 Home Meds: none; [facility] Chart Complete MTDD
--- NOTE | 2016-07-10 21:57 | EDDOCDS ---
Physician Documentation [facility] Name: Jessi Perkins Age: 26 yrs Sex: Female : 1990 Arrival Date: 07/08/2016 Time: 18:28 Bed TR8 Private MD: No Pcp Disposition: 07/08/16 20:42 Patient has left against medical advice. Impression: Fever presenting with conditions classified elsewhere, Urinary tract infection, site not specified, Tachycardia, unspecified, Unspecified abdominal pain - RIGHT SIDED. - Patients states they are going to Home/Self Care. - Condition is Unchanged. - Discharge Instructions: Fever, Adult, Urinary Tract Infection. - Prescriptions for Cipro 500 mg Oral Tablet - take 1 tablet by ORAL route every 12 hours; 14 tablet. Medication Reconciliation, Local Pharmacy Hours form. Follow up: Emergency Department; When: As needed; Reason: Worsening of conditions. [facility]; When: Call to arrange an appointment; Reason: Recheck today's complaints, Continuance of care, To establish care. - Problem is new. - Symptoms are unchanged. - Notes: IT IS UNCERTAIN IF THE URINARY TRACT INFECTION IS THE ONLY CAUSE OF YOUR SYMPTOMS. YOU REFUSED THE CT SCAN TODAY SO YOUR SYMPTOMS COULD NOT FULLY BE DIAGNOSED. IT IS RECOMMENDED YOU FOLLOW UP WITH PRIMARY CARE OR RETURN TO THE ER SOON POSSIBLE TO FURTHER WORK UP AND DIAGNOSE YOUR SYMPTOMS. Historical: - Allergies: no known allergies; - Home Meds: 1. Depo Shot - PMHx: none; - PSHx: none; - Social history: Smoking status: Patient uses tobacco products, heavy tobacco smoker. No barriers to communication noted. - Family history: Not pertinent. - : The pt / caregiver states he / she is not on anticoagulants. Home medication list is obtained from the patient. - Exposure Risk Screening:: None identified. 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 2 in. (157.48 cm) (R); Pain 7/10; 19:24 BP 120 / 85; Pulse 153; Resp 18; Temp 101.5(O); Pulse Ox 99% on R/A; Pain 7/10; sew 20:43 BP 121 / 76; Pulse 142; Resp 16; Temp 98.4; Pulse Ox 97% on R/A; Pain 7/10; sew 18:31 Body Mass Index 21.58 (53.52 kg, 157.48 cm) mt4 MDM: 18:41 -Blood Culture (Adults Only), peripheral from different site, or from device/port/PICC kr3 etc. if present ordered. 18:41 If pre-RCE wait time >60 minutes, inform reg. staff to do full reg ordered. kr3 18:41 If pt is female >10yo <50yo order UCG ordered. kr3 18:41 Undress patient appropriately for examination ordered. kr3 18:42 -Blood Culture Ordered. EDMS 18:42 BMP Ordered. EDMS 18:42 CBC with Diff Ordered. EDMS 18:42 HCG,Serum Qualitative Ordered. EDMS 18:42 Lipase Ordered. EDMS 18:42 Liver Profile Ordered. EDMS 18:42 Urinalysis Ordered. EDMS 18:42 Urine Culture Ordered. EDMS 18:43 -Blood Culture (Adults Only), peripheral from different site, or from device/port/PICC sew etc. if present complete. 18:43 Vital Signs ordered. dt4 18:43 UCG by Nursing ordered. dt4 18:44 BLOOD CULTURES Ordered. EDMS 18:48 Lactic Acid (Hopkins tube on ice) Ordered. EDMS 19:25 Ibuprofen 400 mg PO once ordered. dt4 19:25 Acetaminophen Tablet 975 mg PO once ordered. dt4 20:28 Vital Signs ordered. dt4 20:40 Ciprofloxacin 500 mg PO once ordered. dt4 20:48 ED course: PT HAD SIGNED AMA PAPERWORK PRIOR TO THIS PATIENT OFFICE REP EVALUATING THIS PT. PT dt4 ASKED, "SO ARE YOU GOING TO TELL ME WHAT'S WRONG WITH ME?" ADVISED THAT PT HAS A UTI ON LABWORK THAT WAS COLLECTED PRIOR TO PROVIDER EVALUATION. ON EXAM, PT HAS TACHYCARDIA AND RIGHT FLANK PAIN WITH RUQ AND RLQ PAIN. ADVISED UNABLE TO FURTHER EVALUATE FOR GALLSTONES/KIDNEY STONES/PYELONEPHRITIS WITHOUT FURTHER IMAGING. PT STATES HER RIDE IS WAITING FOR HER OUTSIDE AND THAT SHE HAS TO GO AND WILL HAVE TO RETURN TOMORROW. . 20:53 Financial registration complete. [email or web address] 20:54 [facility] [place] Agreement was scanned into [employer] and attached to record. [email or web address] 07/09 15:49 T-Sheet-- Draft Copy was scanned into [employer] and attached to record. klr 15:56 Refusal of Services was scanned into [employer] and attached to record. kf3 Administered Medications: 07/08 19:29 Drug: Ibuprofen 400 mg [ibuprofen 400 mg tablet (1 tabs)] Route: PO; cz 19:29 Drug: Acetaminophen 975 mg [acetaminophen 325 mg tablet (3 tabs)] Route: PO; cz 20:50 Drug: Ciprofloxacin 500 mg [ciprofloxacin 500 mg tablet (1 tabs)] Route: PO; jf3 20:50 Follow up: Response: Pt left department before re-evaluation is appropriate jf3 Signatures: Dispatcher [employer] EDJazmin LamaRN RN kr3 Abelardo Cheung, Reg Reg kf3 Karolyn Grace RN RN [facility] Citlali Cedillo Diane, PA-C PA-C dt4 Moe Lyons RN RN jf3 Barbara Elizondo, Reg Reg ks16 Iman Duran Calvin RN cz The chart was reviewed and I authenticate all verbal orders and agree with the evaluation and treatment provided.Corrections: (The following items were deleted from the chart) 18:38 18:36 Home Meds: none; [facility] Attachments: 20:54 [facility] Payment Agreement 07/09 15:49 T-Sheet-- Draft Copy klr Chart Complete MTDD
== END 2016-07-08 20:56 | disposition left against medical advice (07) ==
LOC: M ED 18:28
DX: N39.0 Urinary tract infection, site not specified (principal); R00.0 Tachycardia, unspecified; R10.11 Right upper quadrant pain; R10.31 Right lower quadrant pain; R50.9 Fever, unspecified; Z79.3 Long term (current) use of hormonal contraceptives; F17.200 Nicotine dependence, unspecified, uncomplicated

== ENCOUNTER 2016-07-09 17:07 | Emergency (ER) | payer OTHER ==
[2016-07-09 18:32] LABS: AMPHETAMINES LEVEL URINE POSITIVE (NEGATIVE); BENZODIAZEPINES URINE NEGATIVE (NEGATIVE); COCAINE METABOLITE URINE NEGATIVE (NEGATIVE); CONTROL LINE INT CTR LINE PRESENT; METHADONE URINE NEGATIVE (NEGATIVE); OPIATES URINE POSITIVE (NEGATIVE); TRICYCLIC ANTIDEPRESS URINE NEGATIVE (NEGATIVE)
[2016-07-09] MEDS ORDERED: KETOROLAC 30 MG/ML VIAL (J1885) As Ordered ONE (18:40)
[2016-07-09 19:08] LABS: BASO % 0.3 % (0.0-1.0); EOS % 0.5 % (0.0-3.0); LYMPH # 2.4 K/mm3 (1.5-6.5); MEAN CORPUSCULAR HEMOGLOBIN 28.6 pg (27.0-33.0); MEAN CORPUSCULAR HGB CONC 33.7 g/dl (32.0-36.5); MEAN CORPUSCULAR VOLUME 84.8 fl (80.0-96.0); MONO % 5.9 % (0.0-5.0); NEUTROPHILS # 8.5 K/mm3 (1.8-7.7); NEUTROPHILS % 71.2 % (36.0-66.0); PLATELET COUNT, AUTOMATED 219 k/mm3 (150-450); RED CELL DISTRIBUTION WIDTH 13.4 % (11.5-14.5)
[2016-07-09 19:09] LABS: EOS # 0.1 K/mm3 (0.0-0.50); LARGE UNSTAINED CELL # 0.2 K/mm3 (0.0-0.4); MONO # 0.7 K/mm3 (0.0-0.8)
[2016-07-09] MEDS ORDERED: cefTRIAXone SOD 1 GM VIAL (J0696) As Ordered ONE (19:19)
[2016-07-09 19:28] LABS: ALBUMIN 3.3 GM/DL (3.2-5.2); ALBUMIN/GLOBULIN RATIO 0.79 (1.00-1.93); ALKALINE PHOSPHATASE 110 U/L (45-117); ALT/SGPT 16 U/L (12-78); ANION GAP 9 MEQ/L (8-16); AST/SGOT 12 U/L (15-37); BILIRUBIN,DIRECT 0.1 MG/DL (0.0-0.2); BILIRUBIN,TOTAL 0.4 MG/DL (0.2-1.0); BLOOD UREA NITROGEN 12 MG/DL (7-18); CALCIUM LEVEL 8.4 MG/DL (8.5-10.1); CARBON DIOXIDE LEVEL 26 MEQ/L (21-32); CHLORIDE LEVEL 102 MEQ/L (98-107); CREATININE FOR GFR 0.92 MG/DL (0.55-1.02); GLOMERULAR FILTRATION RATE > 60.0 (>60); GLUCOSE, FASTING 84 MG/DL (70-105); POTASSIUM SERUM 3.7 MEQ/L (3.5-5.1); SODIUM LEVEL 137 MEQ/L (136-145); TOTAL PROTEIN 7.5 GM/DL (6.4-8.2)
--- NOTE | 2016-07-09 20:10 | REPUSA ---
CLINICAL HISTORY: Abdominal pain. TECHNIQUE: Multiple axial, sagittal and coronal CT images were obtained through the abdomen and pelvi s without administration of oral or IV contrast material. COMMENTS: The liver is of uniform attenuation without mass or defect. There is no intra or extrahepatic biliary ductal dilatation. The spleen is normal. The gallbladder is within normal limits. The pancreas is of normal contour and attenuation characteristics. There is no evidence of adrenal mass. The kidneys are normal in size, shape and configuration. No right renal or ureteral calculi are ident ified. There is no hydroureter or hydronephrosis. 3 mm nonobstructing calculus is noted inseparable left kidney. There is no evidence for appendicitis. Large amount of fecal material is seen throughout the colon c ompatible with constipation. There is no bowel wall thickening. No evidence for small or large bowel obstruction. There is no evidence of abdominal ascites or lymphadenopathy. There is no evidence of intrinsic or extrinsic bladder mass. There is no pelvic ascites or lymphadeno sheldon. The uterus and ovaries are unremarkable. Images of the lung bases show no evidence of pleural or parenchymal mass. There are no pleural effusi ons. The bony structures are free of lytic or blastic lesions. IMPRESSION: Constipation. 3 mm nonobstructing calculus is noted inseparable left kidney. Thank you for your kind referral of this patient.
[2016-07-09] MEDS ORDERED: CIPROFLOXACIN 500 MG TAB As Ordered ONE (20:26)
--- NOTE | 2016-07-09 20:44 | EDDOCDS ---
Nurse's Notes [facility] Name: Jessi Perkins Age: 26 yrs Sex: Female : 1990 Arrival Date: 07/09/2016 Time: 17:07 Bed I2 / M2 Private MD: No Pcp Diagnosis: Urinary tract infection, site not specified-right pyelonephritis Presentation: 07/09 17:17 Presenting complaint:. jo3 17:19 Presenting complaint: Patient states: seen here yesterday and had blood work and urine jo3 studies done. Was told she would have to have CT scan and decided to sign out AMA. Back to day with pain to right flank and right lower abdomen (same symptoms as yesterday). Acute neurological deficits are not present. Mechanism of Injury: No Mechanism of Injury. Adult Sepsis Screening: The patient does not have new or worsening altered mentation. Patient's respiratory rate is less than 22. Systolic blood pressure is greater than 100. Patient has a qSOFA score of 0- Negative Sepsis Screen. Suicide/Homicide risk assessment- the patient denies having any suicidal and/or homicidal ideations and does not present with any other emotional, behavioral or mental health complaints. Status: Patient is not a office services representative or dependent. Transition of care: patient was not received from another setting of care. 17:19 Acuity: ADRIANNE Level 3 jo3 17:19 Method Of Arrival: Walkin/Carried/Asstd jo3 Triage Assessment: 17:22 General: Appears in no apparent distress, Behavior is appropriate for age, cooperative. jo3 Pain: Pain currently is 7 out of 10 on a pain scale. HIV screening NA for this visit Offered previously. Neurological: Level of Consciousness is awake, alert, Oriented to person, place, time. Respiratory: No deficits noted. Airway is patent Respiratory effort is even, unlabored. Derm: Skin is pink, warm & dry. 20:41 Musculoskeletal: No deficits noted. m DIAMOND ASSORTER: 17:22 LMP 07/08/2016 jo3 Historical: - Allergies: no known allergies; - Home Meds: 1. none - PMHx: none; - PSHx: none; - Social history: Smoking status: Patient uses tobacco products, heavy tobacco smoker. No barriers to communication noted, The patient speaks fluent Maldivian, Speaks appropriately for age. - Family history: Not pertinent. - : The pt / caregiver states he / she is not on anticoagulants. Home medication list is obtained from the patient. - Exposure Risk Screening:: None identified. Screenin:41 Screening information is obtained from the patient. Fall risk: No risks identified. [facility] Assistance ADL's: requires no assistance with activities of daily living. Abuse/DV Screen: The patient / caregiver reports he/she is: not in a situation that causes fear, pain or injury. Nutritional screening: No deficits noted. Advance Directives: Currently, there is no health care proxy. There is no active DNR order. There is no living will. There is no Power of Youth Pastor. Advance directive information has not previously been placed in an [facility] medical record. Further advance directive information is declined. home support is adequate. Assessment: 19:37 General: Appears uncomfortable, Behavior is fussy. Pain: Location: low back area Pain mb9 currently is 5 out of 10 on a pain scale. Respiratory: Airway is patent Respiratory effort is even, unlabored, Breath sounds are clear bilaterally. 20:40 Reassessment: Patient appears in no apparent distress at this time. [facility] Vital Signs: 17:11 BP 134 / 79 LA Sitting (auto/reg); Pulse 145 LA; Resp 18 S; Temp 99.2(O); Pulse Ox 98% mt4 on R/A; Weight 53.52 kg (R); Height 5 ft. 2 in. (157.48 cm) (R); Pain 7/10; 18:37 BP 123 / 75; Pulse 125; Resp 18; Temp 99.8; Pulse Ox 98% ; Pain 9/10; jam1 17:11 Body Mass Index 21.58 (53.52 kg, 157.48 cm) mt4 Vitals: 17:11 Log In Time: July 09, 2016 at 17:07. RN notified that patient meets Red Flag mt4 criteria. ED Course: 17:10 Patient visited by Clara Alexander. mt4 17:10 Patient moved to Waiting mt4 17:11 No Pcp is Private Physician. mt4 17:12 Patient moved to Pre RCE mt4 17:22 Triage Initiated jo3 17:28 Patient moved to PD2 / 27 jo3 17:47 Patient visited by Citlali Cedillo. sew 17:47 EKG done. (by ED staff). Reviewed by Hannah Spears PA-C. sew 18:02 [facility] Payment Agreement was scanned into [employer] and attached to record. gb 18:03 Urinalysis Sent. sew 18:03 Urine Toxicology Sent. sew 18:03 Urine collected. Clean catch specimen. Urine specimen sent to lab. sew 18:04 Patient moved to Pre RCE pml 18:05 Patient name changed from Jessi\S\\S\Perkins\S\ to Jessi\S\Donte\S\Perkins. EDMS 18:11 Patient moved to Triage 2 jo3 18:12 Bora Malik PA is PHCP. mo1 18:12 Alon Vasques MD is Attending Physician. mo1 18:17 Patient visited by Bora Malik PA. mo1 18:32 Patient moved to I2 / M2 pml 18:38 Patient visited by Karolyn Gerber PCA. jam1 18:58 Basic Metabolic Profile Sent. jf3 18:58 CBC with Diff Sent. jf3 18:58 Lipase Sent. jf3 19:00 Patient visited by Moe Lyons RN. jf3 19:00 Liver Profile Sent. jf3 19:00 Inserted saline lock: 20 gauge in left antecubital area The patient tolerated the jf3 procedure well. 19:50 Patient visited by Bora Sloan RN. mb9 20:14 CT ABD & PELVIS: No Contrast Returned. EDMS 20:22 [facility] is Referral Physician. mo1 20:40 Discontinued lock intact, bleeding controlled, pressure dressing applied, No slm redness/swelling at site. No procedures done that require assistance. 20:42 The patient / caregiver is instructed regarding the plan of care and ED course. Patient slm has correct armband on for positive identification. Bed in low position. Call light in reach. Side rails up X 1. Administered Medications: 18:50 Drug: NS 0.9% 1000 ml [sodium chloride 0.9 % injection solution] Route: IV; Rate: jf3 bolus; Site: left antecubital; 18:55 Drug: ketorolac 30 mg [ketorolac 30 mg/mL (1 mL) injection solution (1 mL)] Route: IVP; jf3 Site: left antecubital; 19:37 Drug: cefTRIAXone 2 grams [ceftriaxone 1 gram solution for injection] Route: IVPB; mb9 Infused Over: 30 mins; Site: left antecubital; 20:40 Follow up: IV Status: Completed infusion slm 20:40 Drug: Ciprofloxacin 500 mg [ciprofloxacin 500 mg tablet (1 tabs)] Route: PO; slm Order Results: Lab Order: Urine Toxicology; SPEC'M 07/09/16 18:04 Test: AMPHETAMINES LEVEL URINE; Value: POSITIVE; Range: NEGATIVE; Abnormal: Above high normal; Status: F Test: BARBITURATES URINE; Value: NEGATIVE; Range: NEGATIVE; Status: F Test: BENZODIAZEPINES URINE; Value: NEGATIVE; Range: NEGATIVE; Status: F Test: CANNABINOIDS URINE; Value: NEGATIVE; Range: NEGATIVE; Status: F Test: COCAINE METABOLITE URINE; Value: NEGATIVE; Range: NEGATIVE; Status: F Test: METHADONE URINE; Value: NEGATIVE; Range: NEGATIVE; Status: F Test: OPIATES URINE; Value: POSITIVE; Range: NEGATIVE; Abnormal: Above high normal; Status: F Test: TRICYCLIC ANTIDEPRESS URINE; Value: NEGATIVE; Range: NEGATIVE; Status: F Test Note: ; ALL PRESUMPTIVE POSITIVE FINDINGS ARE UNCONFIRMED NORMAL VALUES THRESHOLD IN NG/ML AMPHETAMINES 1000 METHAMPHETAMINES 1000 BARBITURATES 300 BENZODIAZEPINES 300 CANNABINOIDS (THC) 50 COCAINE METABOLITE 300 METHADONE 300 OPIATES 300 PHENCYCLIDINE 25 TRICYCLIC ANTIDEPRESSANTS 1000 RESULTS ARE FOR MEDICAL PURPOSES ONLY. ALL URINE SPECIMENS WILL BE SAVED FOR 3 DAYS. IF CONFIRMATION OF A PRESUMPTIVE POSTIVE SCREEN RESULT IS DESIRED, CALL CHEMISTRY ([phone]) AND REQUEST URINE TO BE SENT TO REFERENCE LAB. FOR A LIST OF CLOSELY RELATED COMPOUNDS PLEASE CALL THE LAB. Lab Order: Urinalysis; SPEC'M 07/09/16 18:04 Test: APPEARANCE, URINE; Value: HAZY; Range: CLEAR; Status: F Test: COLOR, URINE; Value: YELLOW; Range: YELLOW; Status: F Test: PH,URINE; Value: 5.0; Range: 5.0-9.0; Units: UNITS; Status: F Test: SPECIFIC GRAVITY URINE AUTO; Value: 1.025; Range: 1.002-1.035; Status: F Test: PROTEIN, URINE AUTO; Value: 1+; Range: NEGATIVE; Abnormal: Above high normal; Units: mg/dL; Status: F Test: GLUCOSE, URINE (UA) AUTO; Value: NEGATIVE; Range: NEGATIVE; Units: mg/dL; Status: F Test: KETONE, URINE AUTO; Value: TRACE; Range: NEGATIVE; Abnormal: Above high normal; Units: mg/dL; Status: F Test: UROBILINOGEN, URINE AUTO; Value: 2.0; Range: 0.0-2.0; Abnormal: Above high normal; Units: mg/dL; Status: F Test: BILIRUBIN, URINE AUTO; Value: NEGATIVE; Range: NEGATIVE; Status: F Test: NITRITE, URINE AUTO; Value: NEGATIVE; Range: NEGATIVE; Status: F Test: LEUKOCYTE ESTERASE, URINE AUTO; Value: TRACE; Range: NEGATIVE; Abnormal: Above high normal; Status: F Test: BLOOD, URINE BLOOD; Value: NEGATIVE; Range: NEGATIVE; Status: F Test: WBC, URINE AUTO; Value: 22; Range: 0-3; Abnormal: Above high normal; Units: /HPF; Status: F Test: RBC, URINE AUTO; Value: 3; Range: 0-3; Units: /HPF; Status: F Test: BACTERIA, URINE AUTO; Value: 1+; Range: NEGATIVE; Abnormal: Above high normal; Status: F Test: SQUAMOUS EPITHELIAL CELL UR AU; Value: 2; Range: 0-6; Units: /HPF; Status: F Test: MUCUS, URINE; Value: SMALL; Range: NEGATIVE; Status: F Test: HYALINE CAST, URINE AUTO; Value: 1; Range: 0-1; Units: /LPF; Status: F Test: AMORPHOUS SEDIMENT; Value: SMALL; Range: NEGATIVE; Abnormal: Above high normal; Status: F Lab Order: Basic Metabolic Profile; SPEC'M 07/09/16 18:55 Test: GLUCOSE, FASTING; Value: 84; Range: 70-105; Units: MG/DL; Status: F Test: BLOOD UREA NITROGEN; Value: 12; Range: 7-18; Units: MG/DL; Status: F Test: CREATININE FOR GFR; Value: 0.92; Range: 0.55-1.02; Units: MG/DL; Status: F Test: GLOMERULAR FILTRATION RATE; Value: > 60.0; Range: >60; Status: F Test: SODIUM LEVEL; Value: 137; Range: 136-145; Units: MEQ/L; Status: F Test: POTASSIUM SERUM; Value: 3.7; Range: 3.5-5.1; Units: MEQ/L; Status: F Test: CHLORIDE LEVEL; Value: 102; Range: 98-107; Units: MEQ/L; Status: F Test: CARBON DIOXIDE LEVEL; Value: 26; Range: 21-32; Units: MEQ/L; Status: F Test: ANION GAP; Value: 9; Range: 8-16; Units: MEQ/L; Status: F Test: CALCIUM LEVEL; Value: 8.4; Range: 8.5-10.1; Abnormal: Below low normal; Units: MG/DL; Status: F Test Note: ; Units are mL/min/1.73 m2 Chronic Kidney Disease Staging per NKF: Stage I & II GFR >=60 Normal to Mildly Decreased Stage III GFR 30-59 Moderately Decreased Stage IV GFR 15-29 Severely Decreased Stage V GFR <15 Very Little GFR Left ESRD GFR <15 on DATA PROCESSOR Lab Order: CBC with Diff; SPEC'M 07/09/16 18:55 Test: WHITE BLOOD COUNT; Value: 12.0; Range: 4.0-10.0; Abnormal: Above high normal; Units: K/mm3; Status: F Test: RED BLOOD COUNT; Value: 4.51; Range: 4.00-5.40; Units: M/mm3; Status: F Test: HEMOGLOBIN; Value: 12.9; Range: 12.0-16.0; Units: g/dl; Status: F Test: HEMATOCRIT; Value: 38.2; Range: 36.0-47.0; Units: %; Status: F Test: MEAN CORPUSCULAR VOLUME; Value: 84.8; Range: 80.0-96.0; Units: fl; Status: F Test: MEAN CORPUSCULAR HEMOGLOBIN; Value: 28.6; Range: 27.0-33.0; Units: pg; Status: F Test: MEAN CORPUSCULAR HGB CONC; Value: 33.7; Range: 32.0-36.5; Units: g/dl; Status: F Test: RED CELL DISTRIBUTION WIDTH; Value: 13.4; Range: 11.5-14.5; Units: %; Status: F Test: PLATELET COUNT, AUTOMATED; Value: 219; Range: 150-450; Units: k/mm3; Status: F Test: NEUTROPHILS %; Value: 71.2; Range: 36.0-66.0; Abnormal: Above high normal; Units: %; Status: F Test: LYMPH %; Value: 20.0; Range: 24.0-44.0; Abnormal: Below low normal; Units: %; Status: F Test: MONO %; Value: 5.9; Range: 0.0-5.0; Abnormal: Above high normal; Units: %; Status: F Test: EOS %; Value: 0.5; Range: 0.0-3.0; Units: %; Status: F Test: BASO %; Value: 0.3; Range: 0.0-1.0; Units: %; Status: F Test: LARGE UNSTAINED CELL %; Value: 2.0; Range: 0.0-4.0; Units: %; Status: F Test: NEUTROPHILS #; Value: 8.5; Range: 1.8-7.7; Abnormal: Above high normal; Units: K/mm3; Status: F Test: LYMPH #; Value: 2.4; Range: 1.5-6.5; Units: K/mm3; Status: F Test: MONO #; Value: 0.7; Range: 0.0-0.8; Units: K/mm3; Status: F Test: EOS #; Value: 0.1; Range: 0.0-0.50; Units: K/mm3; Status: F Test: BASO #; Value: 0.0; Range: 0.0-0.2; Units: K/mm3; Status: F Test: LARGE UNSTAINED CELL #; Value: 0.2; Range: 0.0-0.4; Units: K/mm3; Status: F Lab Order: Lipase; SPEC'M 07/09/16 18:55 Test: LIPASE; Value: 40; Range: 73-393; Abnormal: Below low normal; Units: U/L; Status: F Lab Order: Liver Profile; SPEC'M 07/09/16 18:55 Test: AST/SGOT; Value: 12; Range: 15-37; Abnormal: Below low normal; Units: U/L; Status: F Test: ALT/SGPT; Value: 16; Range: 12-78; Units: U/L; Status: F Test: ALKALINE PHOSPHATASE; Value: 110; Range: 45-117; Units: U/L; Status: F Test: BILIRUBIN,TOTAL; Value: 0.4; Range: 0.2-1.0; Units: MG/DL; Status: F Test: BILIRUBIN,DIRECT; Value: 0.1; Range: 0.0-0.2; Units: MG/DL; Status: F Test: TOTAL PROTEIN; Value: 7.5; Range: 6.4-8.2; Units: GM/DL; Status: F Test: ALBUMIN; Value: 3.3; Range: 3.2-5.2; Units: GM/DL; Status: F Test: ALBUMIN/GLOBULIN RATIO; Value: 0.79; Range: 1.00-1.93; Abnormal: Below low normal; Status: F Radiology Order: CT ABD & PELVIS: No Contrast Test: CT ABD & PELVIS: No Contrast REASON FOR EXAMINATION: right flan and RUQ pain; ; CLINICAL HISTORY: Abdominal pain.; TECHNIQUE: Multiple axial, sagittal and coronal CT images were obtained through the abdomen and pelvi; s without administration of oral or IV contrast material.; COMMENTS:; The liver is of uniform attenuation without mass or defect. There is no intra or extrahepatic biliary; ductal dilatation. The spleen is normal. The gallbladder is within normal limits. The pancreas is of; normal contour and attenuation characteristics. There is no evidence of adrenal mass.; The kidneys are normal in size, shape and configuration. No right renal or ureteral calculi are ident; ified. There is no hydroureter or hydronephrosis. 3 mm nonobstructing calculus is noted inseparable; left kidney.; There is no evidence for appendicitis. Large amount of fecal material is seen throughout the colon c; ompatible with constipation. There is no bowel wall thickening. No evidence for small or large bowel; obstruction. There is no evidence of abdominal ascites or lymphadenopathy.; There is no evidence of intrinsic or extrinsic bladder mass. There is no pelvic ascites or lymphadeno; sheldon.; The uterus and ovaries are unremarkable.; Images of the lung bases show no evidence of pleural or parenchymal mass. There are no pleural effusi; ons.; The bony structures are free of lytic or blastic lesions.; IMPRESSION:; Constipation.; 3 mm nonobstructing calculus is noted inseparable left kidney.; Thank you for your kind referral of this patient.; ; Outcome: 20:22 Discharge ordered by Provider. mo1 20:41 Discharge Assessment: Patient awake, alert and oriented x 3. No cognitive and/or slm functional deficits noted. Patient verbalized understanding of disposition instructions. The following High Risk Discharge criteria are identified: None. Discharged to home ambulatory, with significant other. Condition: good. Discharge instructions given to patient, Instructed on discharge instructions, follow up and referral plans. medication usage, Demonstrated understanding of instructions, medications, Pt was receptive of discharge instructions/ teaching. Prescriptions given X 2. Property :Personal belongings accompany Pt. 20:42 Discharge Assessment: patient administered narcotics - no. CT Study completed. slm 20:42 Patient left the ED. slm Signatures: Dispatcher [employer] EDMS Karolyn Gerber, VASCULAR SURGERY PHYSICIAN VASCULAR SURGERY PHYSICIAN jam1 Alysia [address], Reg Reg gb Lucia VillaltaRN RN Clara Espinoza mt4 Irena Duarte,RN RN Citlali Canales Michael, PA PA mo1 Uma Butler,CHARLEEN DRYWALL MECHANIC slm Bora Sloan,RN RN mb9 Moe Lyons,RN RN jf3 MTDVern
--- NOTE | 2016-07-09 20:44 | EDDOCDS ---
Physician Documentation [facility] Name: Jessi Perkins Age: 26 yrs Sex: Female : 1990 Arrival Date: 07/09/2016 Time: 17:07 Bed I2 / M2 Private MD: No Pcp Disposition: 07/09/16 20:22 Discharged to Home/Self Care. Impression: Urinary tract infection, site not specified - right pyelonephritis. - Condition is Stable. - Discharge Instructions: Pyelonephritis, Adult, Urinary Tract Infection. - Prescriptions for Cipro 500 mg Oral Tablet - take 1 tablet by ORAL route every 12 hours; 14 tablet. ZOFRAN ODT 4 mg - dissolve 1 tablet by ORAL route 4 times per day As needed do not chew, do not swallow whole; 10 tablet. - Medication Reconciliation, Local Pharmacy Hours form. - [facility] up: [facility]; When: Call to arrange an appointment; Reason: Recheck today's complaints, Continuance of care. - Problem is new. - Symptoms are unchanged. Historical: - Allergies: no known allergies; - Home Meds: 1. none - PMHx: none; - PSHx: none; - Social history: Smoking status: Patient uses tobacco products, heavy tobacco smoker. No barriers to communication noted, The patient speaks fluent Spanish, Speaks appropriately for age. - Family history: Not pertinent. - : The pt / caregiver states he / she is not on anticoagulants. Home medication list is obtained from the patient. - Exposure Risk Screening:: None identified. HEAT AND FROST INSULATOR: 07/09 17:22 LMP 07/08/2016 jo3 Vital Signs: 17:11 BP 134 / 79 LA Sitting (auto/reg); Pulse 145 LA; Resp 18 S; Temp 99.2(O); Pulse Ox 98% mt4 on R/A; Weight 53.52 kg / 117.99 lbs (R); Height 5 ft. 2 in. (157.48 cm) (R); Pain 7/10; 18:37 BP 123 / 75; Pulse 125; Resp 18; Temp 99.8; Pulse Ox 98% ; Pain 9/10; jam1 17:11 Body Mass Index 21.58 (53.52 kg, 157.48 cm) mt4 MDM: 17:28 Urine Toxicology Ordered. EDMS 17:28 Urinalysis Ordered. EDMS 17:29 ECG WITH READING ER PHYS+CARDIAG ordered. EDMS 18:02 [facility] Payment Agreement was scanned into [employer] and attached to record. gb 18:22 Financial registration complete. gb 18:28 NS 0.9% 1000 ml IV at bolus once ordered. mo1 18:28 ketorolac 30 mg IVP once ordered. mo1 18:28 IV Saline Lock ordered. mo1 18:28 Undress patient appropriately for examination ordered. mo1 18:29 Basic Metabolic Profile Ordered. EDMS 18:29 CBC with Diff Ordered. EDMS 18:29 Lipase Ordered. EDMS 18:29 Liver Profile Ordered. EDMS 18:29 CT ABD & PELVIS: No Contrast Ordered. EDMS 18:30 NOTHING BY MOUTH+DIET ordered. EDMS 18:54 Urinalysis Reviewed. mo1 18:54 Urine Toxicology Reviewed. mo1 18:56 -Blood Culture (Adults Only), peripheral from different site, or from device/port/PICC mo1 etc. if present ordered. 18:56 cefTRIAXone 2 grams IVPB once over 30 mins; dilute in 50mL of NS or D5W ordered. mo1 18:56 -Blood Culture (Adults Only), peripheral from different site, or from device/port/PICC ajs etc. if present complete. 19:20 CBC with Diff Reviewed. mo1 19:42 Basic Metabolic Profile Reviewed. mo1 19:42 Lipase Reviewed. mo1 19:42 Liver Profile Reviewed. mo1 20:21 Ciprofloxacin 500 mg PO once ordered. mo1 Administered Medications: 18:50 Drug: NS 0.9% 1000 ml [sodium chloride 0.9 % injection solution] Route: IV; Rate: jf3 bolus; Site: left antecubital; 18:55 Drug: ketorolac 30 mg [ketorolac 30 mg/mL (1 mL) injection solution (1 mL)] Route: IVP; jf3 Site: left antecubital; 19:37 Drug: cefTRIAXone 2 grams [ceftriaxone 1 gram solution for injection] Route: IVPB; mb9 Infused Over: 30 mins; Site: left antecubital; 20:40 Follow up: IV Status: Completed infusion slm 20:40 Drug: Ciprofloxacin 500 mg [ciprofloxacin 500 mg tablet (1 tabs)] Route: PO; [facility] Signatures: Dispatcher [employer] EDMS Alysia Way, Reg Reg gb Lucia VillaltaRN RN jo3 Nerissa Anderson Michael, PA PA mo1 Uma Butler LPN VP COMPLIANCE slHannah Mireles PA-C PA-C dt4 Bora Sloan RN mb9 Moe Lyons RN jf3 The chart was reviewed and I authenticate all verbal orders and agree with the evaluation and treatment provided.Corrections: (The following items were deleted from the chart) 17:28 17:28 UCG by Nursing ordered. dt4 dt4 19:01 18:57 -BLOOD CULTURES+DARLING ordered. EDMS EDMS Attachments: 18:02 [facility] Payment Agreement gb MTDD
--- NOTE | 2016-07-10 07:23 | ECGEPIP ---
Stationary ECG Study [facility] - ED Test Date: 2016-07-09 Pat Name: ZOE BURNS Department: Room: - Gender: F Director Public Service: andrade : 1990 Requested By: JELLY Tao PA-C Order Number: [id number] Reading MD: Mau Ryan Measurements Intervals [place] Rate: 106 P: 73 IL: 140 QRS: 65 QRSD: 91 T: 50 QT: 327 QTc: 434 Interpretive Statements SINUS TACHYCARDIA Electronically Signed On 07-10-2016 7:23:17 EST by Mau Ryan
--- NOTE | 2016-07-11 21:43 | EDDOCDS ---
Physician Documentation [facility] Name: Jessi Perkins Age: 26 yrs Sex: Female : 1990 Arrival Date: 07/09/2016 Time: 17:07 Bed I2 / M2 Private MD: No Pcp Disposition: 07/09/16 20:22 Discharged to Home/Self Care. Impression: Urinary tract infection, site not specified - right pyelonephritis. - Condition is Stable. - Discharge Instructions: Pyelonephritis, Adult, Urinary Tract Infection. - Prescriptions for Cipro 500 mg Oral Tablet - take 1 tablet by ORAL route every 12 hours; 14 tablet. ZOFRAN ODT 4 mg - dissolve 1 tablet by ORAL route 4 times per day As needed do not chew, do not swallow whole; 10 tablet. - Medication Reconciliation, Local Pharmacy Hours form. - [facility] up: [facility]; When: Call to arrange an appointment; Reason: Recheck today's complaints, Continuance of care. - Problem is new. - Symptoms are unchanged. Historical: - Allergies: no known allergies; - Home Meds: 1. none - PMHx: none; - PSHx: none; - Social history: Smoking status: Patient uses tobacco products, heavy tobacco smoker. No barriers to communication noted, The patient speaks fluent [place], Speaks appropriately for age. - Family history: Not pertinent. - : The pt / caregiver states he / she is not on anticoagulants. Home medication list is obtained from the patient. - Exposure Risk Screening:: None identified. HEALTH CARE FACILITY ADMINISTRATOR: 07/09 17:22 LMP 07/08/2016 jo3 Vital Signs: 17:11 BP 134 / 79 LA Sitting (auto/reg); Pulse 145 LA; Resp 18 S; Temp 99.2(O); Pulse Ox 98% mt4 on R/A; Weight 53.52 kg / 117.99 lbs (R); Height 5 ft. 2 in. (157.48 cm) (R); Pain 7/10; 18:37 BP 123 / 75; Pulse 125; Resp 18; Temp 99.8; Pulse Ox 98% ; Pain 9/10; jam1 17:11 Body Mass Index 21.58 (53.52 kg, 157.48 cm) mt4 MDM: 17:28 Urine Toxicology Ordered. EDMS 17:28 Urinalysis Ordered. EDMS 17:29 ECG WITH READING ER PHYS+CARDIAG ordered. EDMS 18:02 [facility] Payment Agreement was scanned into [employer] and attached to record. gb 18:22 Financial registration complete. gb 18:28 NS 0.9% 1000 ml IV at bolus once ordered. mo1 18:28 ketorolac 30 mg IVP once ordered. mo1 18:28 IV Saline Lock ordered. mo1 18:28 Undress patient appropriately for examination ordered. mo1 18:29 Basic Metabolic Profile Ordered. EDMS 18:29 CBC with Diff Ordered. EDMS 18:29 Lipase Ordered. EDMS 18:29 Liver Profile Ordered. EDMS 18:29 CT ABD & PELVIS: No Contrast Ordered. EDMS 18:30 NOTHING BY MOUTH+DIET ordered. EDMS 18:54 Urinalysis Reviewed. mo1 18:54 Urine Toxicology Reviewed. mo1 18:56 -Blood Culture (Adults Only), peripheral from different site, or from device/port/PICC mo1 etc. if present ordered. 18:56 cefTRIAXone 2 grams IVPB once over 30 mins; dilute in 50mL of NS or D5W ordered. mo1 18:56 -Blood Culture (Adults Only), peripheral from different site, or from device/port/PICC ajs etc. if present complete. 19:20 CBC with Diff Reviewed. mo1 19:42 Basic Metabolic Profile Reviewed. mo1 19:42 Lipase Reviewed. mo1 19:42 Liver Profile Reviewed. mo1 20:21 Ciprofloxacin 500 mg PO once ordered. mo1 22:46 T-Sheet-- Draft Copy was scanned into [email or web address] and attached to record. klr 07/10 10:19 ECG/EKG was scanned into [email or web address] and attached to record. gb 10:20 Radiology Report was scanned into [employer] and attached to record. gb Administered Medications: 07/09 18:50 Drug: NS 0.9% 1000 ml [sodium chloride 0.9 % injection solution] Route: IV; Rate: jf3 bolus; Site: left antecubital; 18:55 Drug: ketorolac 30 mg [ketorolac 30 mg/mL (1 mL) injection solution (1 mL)] Route: IVP; jf3 Site: left antecubital; 19:37 Drug: cefTRIAXone 2 grams [ceftriaxone 1 gram solution for injection] Route: IVPB; mb9 Infused Over: 30 mins; Site: left antecubital; 20:40 Follow up: IV Status: Completed infusion [facility] 20:40 Drug: Ciprofloxacin 500 mg [ciprofloxacin 500 mg tablet (1 tabs)] Route: PO; [facility] Signatures: Dispatcher [employer] EDMS Alysia Way, Lucia MosleyRN RN jo3 Nerissa Anderson Michael, PA PA mo1 Uma Butler LPN DIRECTOR OF AUTOMATION slm Hannah Spears PA-C PA-Marquez dt4 Iman Duran Michael RN mb9 Moe Lyons RN jf3 The chart was reviewed and I authenticate all verbal orders and agree with the evaluation and treatment provided.Corrections: (The following items were deleted from the chart) 17:28 17:28 UCG by Nursing ordered. dt4 dt4 19:01 18:57 -BLOOD CULTURES+DARLING ordered. EDMS EDMS Attachments: 18:02 [facility] Payment Agreement gb 22:46 T-Sheet-- Draft Copy [facility] 07/10 10:19 ECG/EKG gb Chart Complete MTDD
--- NOTE | 2016-07-11 21:43 | EDDOCDS ---
Physician Documentation [facility] Name: Jessi Perkins Age: 26 yrs Sex: Female : 1990 Arrival Date: 07/09/2016 Time: 17:07 Bed I2 / M2 Private MD: No Pcp Disposition: 07/09/16 20:22 Discharged to Home/Self Care. Impression: Urinary tract infection, site not specified - right pyelonephritis. - Condition is Stable. - Discharge Instructions: Pyelonephritis, Adult, Urinary Tract Infection. - Prescriptions for Cipro 500 mg Oral Tablet - take 1 tablet by ORAL route every 12 hours; 14 tablet. ZOFRAN ODT 4 mg - dissolve 1 tablet by ORAL route 4 times per day As needed do not chew, do not swallow whole; 10 tablet. - Medication Reconciliation, Local Pharmacy Hours form. - Follow up: [facility]; When: Call to arrange an appointment; Reason: Recheck today's complaints, Continuance of care. - Problem is new. - Symptoms are unchanged. Historical: - Allergies: no known allergies; - Home Meds: 1. none - PMHx: none; - PSHx: none; - Social history: Smoking status: Patient uses tobacco products, heavy tobacco smoker. No barriers to communication noted, The patient speaks fluent Macedonian, Speaks appropriately for age. - Family history: Not pertinent. - : The pt / caregiver states he / she is not on anticoagulants. Home medication list is obtained from the patient. - Exposure Risk Screening:: None identified. COMMERCIAL FINANCE MANAGER: 07/09 17:22 LMP 07/08/2016 jo3 Vital Signs: 17:11 BP 134 / 79 LA Sitting (auto/reg); Pulse 145 LA; Resp 18 S; Temp 99.2(O); Pulse Ox 98% mt4 on R/A; Weight 53.52 kg / 117.99 lbs (R); Height 5 ft. 2 in. (157.48 cm) (R); Pain 7/10; 18:37 BP 123 / 75; Pulse 125; Resp 18; Temp 99.8; Pulse Ox 98% ; Pain 9/10; jam1 17:11 Body Mass Index 21.58 (53.52 kg, 157.48 cm) mt4 MDM: 17:28 Urine Toxicology Ordered. EDMS 17:28 Urinalysis Ordered. EDMS 17:29 ECG WITH READING ER PHYS+CARDIAG ordered. EDMS 18:02 [facility] Payment Agreement was scanned into [employer] and attached to record. gb 18:22 Financial registration complete. gb 18:28 NS 0.9% 1000 ml IV at bolus once ordered. mo1 18:28 ketorolac 30 mg IVP once ordered. mo1 18:28 IV Saline Lock ordered. mo1 18:28 Undress patient appropriately for examination ordered. mo1 18:29 Basic Metabolic Profile Ordered. EDMS 18:29 CBC with Diff Ordered. EDMS 18:29 Lipase Ordered. EDMS 18:29 Liver Profile Ordered. EDMS 18:29 CT ABD & PELVIS: No Contrast Ordered. EDMS 18:30 NOTHING BY MOUTH+DIET ordered. EDMS 18:54 Urinalysis Reviewed. mo1 18:54 Urine Toxicology Reviewed. mo1 18:56 -Blood Culture (Adults Only), peripheral from different site, or from device/port/PICC mo1 etc. if present ordered. 18:56 cefTRIAXone 2 grams IVPB once over 30 mins; dilute in 50mL of NS or D5W ordered. mo1 18:56 -Blood Culture (Adults Only), peripheral from different site, or from device/port/PICC ajs etc. if present complete. 19:20 CBC with Diff Reviewed. mo1 19:42 Basic Metabolic Profile Reviewed. mo1 19:42 Lipase Reviewed. mo1 19:42 Liver Profile Reviewed. mo1 20:21 Ciprofloxacin 500 mg PO once ordered. mo1 22:46 T-Sheet-- Draft Copy was scanned into [employer] and attached to record. klr 07/10 10:19 ECG/EKG was scanned into [employer] and attached to record. gb 10:20 Radiology Report was scanned into [employer] and attached to record. gb Administered Medications: 07/09 18:50 Drug: NS 0.9% 1000 ml [sodium chloride 0.9 % injection solution] Route: IV; Rate: jf3 bolus; Site: left antecubital; 18:55 Drug: ketorolac 30 mg [ketorolac 30 mg/mL (1 mL) injection solution (1 mL)] Route: IVP; jf3 Site: left antecubital; 19:37 Drug: cefTRIAXone 2 grams [ceftriaxone 1 gram solution for injection] Route: IVPB; mb9 Infused Over: 30 mins; Site: left antecubital; 20:40 Follow up: IV Status: Completed infusion [facility] 20:40 Drug: Ciprofloxacin 500 mg [ciprofloxacin 500 mg tablet (1 tabs)] Route: PO; [facility] Signatures: Dispatcher [employer] EDMS Alysia Way, Lucia MosleyRN RN jo3 Nerissa Anderson Michael, PA PA mo1 Uma Butler LPN FILM MAKER slm Hannah Spears PA-C PA-Marquez dt4 Iman Duran Michael RN mb9 Moe Lyons RN jf3 The chart was reviewed and I authenticate all verbal orders and agree with the evaluation and treatment provided.Corrections: (The following items were deleted from the chart) 17:28 17:28 UCG by Nursing ordered. dt4 dt4 19:01 18:57 -BLOOD CULTURES+DARLING ordered. EDMS EDMS Attachments: 18:02 [facility] [place] Payment Agreement gb 22:46 T-Sheet-- Draft Copy [facility] 07/10 10:19 ECG/EKG gb Chart Complete MTDD
--- NOTE | 2016-07-11 21:43 | EDDOCDS ---
Nurse's Notes [facility] Name: Zoe Perkins Age: 26 yrs Sex: Female : 1990 Arrival Date: 07/09/2016 Time: 17:07 Bed I2 / M2 Private MD: No Pcp Diagnosis: Urinary tract infection, site not specified-right pyelonephritis Presentation: 07/09 17:17 Presenting complaint:. jo3 17:19 Presenting complaint: Patient states: seen here yesterday and had blood work and urine jo3 studies done. Was told she would have to have CT scan and decided to sign out AMA. Back to day with pain to right flank and right lower abdomen (same symptoms as yesterday). Acute neurological deficits are not present. Mechanism of Injury: No Mechanism of Injury. Adult Sepsis Screening: The patient does not have new or worsening altered mentation. Patient's respiratory rate is less than 22. Systolic blood pressure is greater than 100. Patient has a qSOFA score of 0- Negative Sepsis Screen. Suicide/Homicide risk assessment- the patient denies having any suicidal and/or homicidal ideations and does not present with any other emotional, behavioral or mental health complaints. 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 Transition of care: patient was not received from another setting of care. 17:19 Acuity: ADRIANNE Level 3 jo3 17:19 Method Of Arrival: Walkin/Carried/Asstd jo3 Triage Assessment: 17:22 General: Appears in no apparent distress, Behavior is appropriate for age, cooperative. jo3 Pain: Pain currently is 7 out of 10 on a pain scale. HIV screening NA for this visit Offered previously. Neurological: Level of Consciousness is awake, alert, Oriented to person, place, time. Respiratory: No deficits noted. Airway is patent Respiratory effort is even, unlabored. Derm: Skin is pink, warm & dry. 20:41 Musculoskeletal: No deficits noted. 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 none - PMHx: none; - PSHx: none; - Social history: Smoking status: Patient uses tobacco products, heavy tobacco smoker. No barriers to communication noted, The patient speaks fluent Latvian, Speaks appropriately for age. - Family history: Not pertinent. - : The pt / caregiver states he / she is not on anticoagulants. Home medication list is obtained from the patient. - Exposure Risk Screening:: None identified. Screenin:41 Screening information is obtained from the patient. Fall risk: No risks identified. [facility] Assistance ADL's: requires no assistance with activities of daily living. Abuse/DV Screen: The patient / caregiver reports he/she is: not in a situation that causes fear, pain or injury. Nutritional screening: No deficits noted. Advance Directives: Currently, there is no health care proxy. There is no active DNR order. There is no living will. There is no Power of [employer] Executive. Advance directive information has not previously been placed in an [facility] medical record. Further advance directive information is declined. home support is adequate. Assessment: 19:37 General: Appears uncomfortable, Behavior is fussy. Pain: Location: low back area Pain mb9 currently is 5 out of 10 on a pain scale. Respiratory: Airway is patent Respiratory effort is even, unlabored, Breath sounds are clear bilaterally. 20:40 Reassessment: Patient appears in no apparent distress at this time. [facility] Vital Signs: 17:11 BP 134 / 79 LA Sitting (auto/reg); Pulse 145 LA; Resp 18 S; Temp 99.2(O); Pulse Ox 98% mt4 on R/A; Weight 53.52 kg (R); Height 5 ft. 2 in. (157.48 cm) (R); Pain 7/10; 18:37 BP 123 / 75; Pulse 125; Resp 18; Temp 99.8; Pulse Ox 98% ; Pain 9/10; jam1 17:11 Body Mass Index 21.58 (53.52 kg, 157.48 cm) mt4 Vitals: 17:11 Log In Time: July 09, 2016 at 17:07. RN notified that patient meets Red Flag mt4 criteria. ED Course: 17:10 Patient visited by Clara Alexander. mt4 17:10 Patient moved to Waiting mt4 17:11 No Pcp is Private Physician. mt4 17:12 Patient moved to Pre RCE mt4 17:22 Triage Initiated jo3 17:28 Patient moved to PD2 / 27 jo3 17:47 Patient visited by Citlali Cedillo. sew 17:47 EKG done. (by ED staff). Reviewed by Hannah Spears PA-C. sew 18:02 [facility] Payment Agreement was scanned into [employer] and attached to record. gb 18:03 Urinalysis Sent. sew 18:03 Urine Toxicology Sent. sew 18:03 Urine collected. Clean catch specimen. Urine specimen sent to lab. sew 18:04 Patient moved to Pre RCE pml 18:05 Patient name changed from Zoe\S\\S\Perkins\S\ to Zoe\S\Donte\S\Perkins. EDMS 18:11 Patient moved to Triage 2 jo3 18:12 Bora Malik PA is PHCP. mo1 18:12 Alon Vasques MD is Attending Physician. mo1 18:17 Patient visited by Bora Malik PA. mo1 18:32 Patient moved to I2 / M2 pml 18:38 Patient visited by Karolyn Gerber PCA. jam1 18:58 Basic Metabolic Profile Sent. jf3 18:58 CBC with Diff Sent. jf3 18:58 Lipase Sent. jf3 19:00 Patient visited by Moe Lyons RN. jf3 19:00 Liver Profile Sent. jf3 19:00 Inserted saline lock: 20 gauge in left antecubital area The patient tolerated the jf3 procedure well. 19:50 Patient visited by Bora Sloan RN. mb9 20:14 CT ABD & PELVIS: No Contrast Returned. EDMS 20:22 [facility] is Referral Physician. mo1 20:40 Discontinued lock intact, bleeding controlled, pressure dressing applied, No slm redness/swelling at site. No procedures done that require assistance. 20:42 The patient / caregiver is instructed regarding the plan of care and ED course. Patient slm has correct armband on for positive identification. Bed in low position. Call light in reach. Side rails up X 1. 22:46 T-Sheet-- Draft Copy was scanned into [employer] and attached to record. klr 07/10 07:28 EKG-ADULT Returned. EDMS 10:19 ECG/EKG was scanned into [employer] and attached to record. gb 10:20 Radiology Report was scanned into [employer] and attached to record. gb Administered Medications: 07/09 18:50 Drug: NS 0.9% 1000 ml [sodium chloride 0.9 % injection solution] Route: IV; Rate: jf3 bolus; Site: left antecubital; 18:55 Drug: ketorolac 30 mg [ketorolac 30 mg/mL (1 mL) injection solution (1 mL)] Route: IVP; jf3 Site: left antecubital; 19:37 Drug: cefTRIAXone 2 grams [ceftriaxone 1 gram solution for injection] Route: IVPB; mb9 Infused Over: 30 mins; Site: left antecubital; 20:40 Follow up: IV Status: Completed infusion sl 20:40 Drug: Ciprofloxacin 500 mg [ciprofloxacin 500 mg tablet (1 tabs)] Route: PO; slm Order Results: Lab Order: Urine Toxicology; SPEC'M 07/09/16 18:04 Test: AMPHETAMINES LEVEL URINE; Value: POSITIVE; Range: NEGATIVE; Abnormal: Above high normal; Status: F Test: BARBITURATES URINE; Value: NEGATIVE; Range: NEGATIVE; Status: F Test: BENZODIAZEPINES URINE; Value: NEGATIVE; Range: NEGATIVE; Status: F Test: CANNABINOIDS URINE; Value: NEGATIVE; Range: NEGATIVE; Status: F Test: COCAINE METABOLITE URINE; Value: NEGATIVE; Range: NEGATIVE; Status: F Test: METHADONE URINE; Value: NEGATIVE; Range: NEGATIVE; Status: F Test: OPIATES URINE; Value: POSITIVE; Range: NEGATIVE; Abnormal: Above high normal; Status: F Test: TRICYCLIC ANTIDEPRESS URINE; Value: NEGATIVE; Range: NEGATIVE; Status: F Test Note: ; ALL PRESUMPTIVE POSITIVE FINDINGS ARE UNCONFIRMED NORMAL VALUES THRESHOLD IN NG/ML AMPHETAMINES 1000 METHAMPHETAMINES 1000 BARBITURATES 300 BENZODIAZEPINES 300 CANNABINOIDS (THC) 50 COCAINE METABOLITE 300 METHADONE 300 OPIATES 300 PHENCYCLIDINE 25 TRICYCLIC ANTIDEPRESSANTS 1000 RESULTS ARE FOR MEDICAL PURPOSES ONLY. ALL URINE SPECIMENS WILL BE SAVED FOR 3 DAYS. IF CONFIRMATION OF A PRESUMPTIVE POSTIVE SCREEN RESULT IS DESIRED, CALL CHEMISTRY ([phone]) AND REQUEST URINE TO BE SENT TO REFERENCE LAB. FOR A LIST OF CLOSELY RELATED COMPOUNDS PLEASE CALL THE LAB. Lab Order: Urinalysis; SPEC'M 07/09/16 18:04 Test: APPEARANCE, URINE; Value: HAZY; Range: CLEAR; Status: F Test: COLOR, URINE; Value: YELLOW; Range: YELLOW; Status: F Test: PH,URINE; Value: 5.0; Range: 5.0-9.0; Units: UNITS; Status: F Test: SPECIFIC GRAVITY URINE AUTO; Value: 1.025; Range: 1.002-1.035; Status: F Test: PROTEIN, URINE AUTO; Value: 1+; Range: NEGATIVE; Abnormal: Above high normal; Units: mg/dL; Status: F Test: GLUCOSE, URINE (UA) AUTO; Value: NEGATIVE; Range: NEGATIVE; Units: mg/dL; Status: F Test: KETONE, URINE AUTO; Value: TRACE; Range: NEGATIVE; Abnormal: Above high normal; Units: mg/dL; Status: F Test: UROBILINOGEN, URINE AUTO; Value: 2.0; Range: 0.0-2.0; Abnormal: Above high normal; Units: mg/dL; Status: F Test: BILIRUBIN, URINE AUTO; Value: NEGATIVE; Range: NEGATIVE; Status: F Test: NITRITE, URINE AUTO; Value: NEGATIVE; Range: NEGATIVE; Status: F Test: LEUKOCYTE ESTERASE, URINE AUTO; Value: TRACE; Range: NEGATIVE; Abnormal: Above high normal; Status: F Test: BLOOD, URINE BLOOD; Value: NEGATIVE; Range: NEGATIVE; Status: F Test: WBC, URINE AUTO; Value: 22; Range: 0-3; Abnormal: Above high normal; Units: /HPF; Status: F Test: RBC, URINE AUTO; Value: 3; Range: 0-3; Units: /HPF; Status: F Test: BACTERIA, URINE AUTO; Value: 1+; Range: NEGATIVE; Abnormal: Above high normal; Status: F Test: SQUAMOUS EPITHELIAL CELL UR AU; Value: 2; Range: 0-6; Units: /HPF; Status: F Test: MUCUS, URINE; Value: SMALL; Range: NEGATIVE; Status: F Test: HYALINE CAST, URINE AUTO; Value: 1; Range: 0-1; Units: /LPF; Status: F Test: AMORPHOUS SEDIMENT; Value: SMALL; Range: NEGATIVE; Abnormal: Above high normal; Status: F Lab Order: Basic Metabolic Profile; SPEC'M 07/09/16 18:55 Test: GLUCOSE, FASTING; Value: 84; Range: 70-105; Units: MG/DL; Status: F Test: BLOOD UREA NITROGEN; Value: 12; Range: 7-18; Units: MG/DL; Status: F Test: CREATININE FOR GFR; Value: 0.92; Range: 0.55-1.02; Units: MG/DL; Status: F Test: GLOMERULAR FILTRATION RATE; Value: > 60.0; Range: >60; Status: F Test: SODIUM LEVEL; Value: 137; Range: 136-145; Units: MEQ/L; Status: F Test: POTASSIUM SERUM; Value: 3.7; Range: 3.5-5.1; Units: MEQ/L; Status: F Test: CHLORIDE LEVEL; Value: 102; Range: 98-107; Units: MEQ/L; Status: F Test: CARBON DIOXIDE LEVEL; Value: 26; Range: 21-32; Units: MEQ/L; Status: F Test: ANION GAP; Value: 9; Range: 8-16; Units: MEQ/L; Status: F Test: CALCIUM LEVEL; Value: 8.4; Range: 8.5-10.1; Abnormal: Below low normal; Units: MG/DL; Status: F Test Note: ; Units are mL/min/1.73 m2 Chronic Kidney Disease Staging per NKF: Stage I & II GFR >=60 Normal to Mildly Decreased Stage III GFR 30-59 Moderately Decreased Stage IV GFR 15-29 Severely Decreased Stage V GFR <15 Very Little GFR Left ESRD GFR <15 on MACHINE STUFFER Lab Order: CBC with Diff; SPEC'M 07/09/16 18:55 Test: WHITE BLOOD COUNT; Value: 12.0; Range: 4.0-10.0; Abnormal: Above high normal; Units: K/mm3; Status: F Test: RED BLOOD COUNT; Value: 4.51; Range: 4.00-5.40; Units: M/mm3; Status: F Test: HEMOGLOBIN; Value: 12.9; Range: 12.0-16.0; Units: g/dl; Status: F Test: HEMATOCRIT; Value: 38.2; Range: 36.0-47.0; Units: %; Status: F Test: MEAN CORPUSCULAR VOLUME; Value: 84.8; Range: 80.0-96.0; Units: fl; Status: F Test: MEAN CORPUSCULAR HEMOGLOBIN; Value: 28.6; Range: 27.0-33.0; Units: pg; Status: F Test: MEAN CORPUSCULAR HGB CONC; Value: 33.7; Range: 32.0-36.5; Units: g/dl; Status: F Test: RED CELL DISTRIBUTION WIDTH; Value: 13.4; Range: 11.5-14.5; Units: %; Status: F Test: PLATELET COUNT, AUTOMATED; Value: 219; Range: 150-450; Units: k/mm3; Status: F Test: NEUTROPHILS %; Value: 71.2; Range: 36.0-66.0; Abnormal: Above high normal; Units: %; Status: F Test: LYMPH %; Value: 20.0; Range: 24.0-44.0; Abnormal: Below low normal; Units: %; Status: F Test: MONO %; Value: 5.9; Range: 0.0-5.0; Abnormal: Above high normal; Units: %; Status: F Test: EOS %; Value: 0.5; Range: 0.0-3.0; Units: %; Status: F Test: BASO %; Value: 0.3; Range: 0.0-1.0; Units: %; Status: F Test: LARGE UNSTAINED CELL %; Value: 2.0; Range: 0.0-4.0; Units: %; Status: F Test: NEUTROPHILS #; Value: 8.5; Range: 1.8-7.7; Abnormal: Above high normal; Units: K/mm3; Status: F Test: LYMPH #; Value: 2.4; Range: 1.5-6.5; Units: K/mm3; Status: F Test: MONO #; Value: 0.7; Range: 0.0-0.8; Units: K/mm3; Status: F Test: EOS #; Value: 0.1; Range: 0.0-0.50; Units: K/mm3; Status: F Test: BASO #; Value: 0.0; Range: 0.0-0.2; Units: K/mm3; Status: F Test: LARGE UNSTAINED CELL #; Value: 0.2; Range: 0.0-0.4; Units: K/mm3; Status: F Lab Order: Lipase; SPEC'M 07/09/16 18:55 Test: LIPASE; Value: 40; Range: 73-393; Abnormal: Below low normal; Units: U/L; Status: F Lab Order: Liver Profile; SPEC'M 07/09/16 18:55 Test: AST/SGOT; Value: 12; Range: 15-37; Abnormal: Below low normal; Units: U/L; Status: F Test: ALT/SGPT; Value: 16; Range: 12-78; Units: U/L; Status: F Test: ALKALINE PHOSPHATASE; Value: 110; Range: 45-117; Units: U/L; Status: F Test: BILIRUBIN,TOTAL; Value: 0.4; Range: 0.2-1.0; Units: MG/DL; Status: F Test: BILIRUBIN,DIRECT; Value: 0.1; Range: 0.0-0.2; Units: MG/DL; Status: F Test: TOTAL PROTEIN; Value: 7.5; Range: 6.4-8.2; Units: GM/DL; Status: F Test: ALBUMIN; Value: 3.3; Range: 3.2-5.2; Units: GM/DL; Status: F Test: ALBUMIN/GLOBULIN RATIO; Value: 0.79; Range: 1.00-1.93; Abnormal: Below low normal; Status: F Radiology Order: EKG-ADULT Test: EKG-ADULT REASON FOR EXAMINATION: tachycardia; Stationary ECG Study; [facility] - ED; ; Test Date: 2016-07-09; Pat Name: ZOE PERKINS Department:; Room: -; 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; : 1990 Requested By: HANNAH Tao PA-C; Order Number: [id number] Reading MD: Mau Ryan; Measurements; Intervals Winn; Rate: 106 P: 73; UT: 140 QRS: 65; QRSD: 91 T: 50; QT: 327; QTc: 434; Interpretive Statements; SINUS TACHYCARDIA; ; Electronically Signed On 07-10-2016 7:23:17 EST by Mau Ryan; Radiology Order: CT ABD & PELVIS: No Contrast Test: CT ABD & PELVIS: No Contrast REASON FOR EXAMINATION: right flan and RUQ pain; ; CLINICAL HISTORY: Abdominal pain.; TECHNIQUE: Multiple axial, sagittal and coronal CT images were obtained through the abdomen and pelvi; s without administration of oral or IV contrast material.; COMMENTS:; The liver is of uniform attenuation without mass or defect. There is no intra or extrahepatic biliary; ductal dilatation. The spleen is normal. The gallbladder is within normal limits. The pancreas is of; normal contour and attenuation characteristics. There is no evidence of adrenal mass.; The kidneys are normal in size, shape and configuration. No right renal or ureteral calculi are ident; ified. There is no hydroureter or hydronephrosis. 3 mm nonobstructing calculus is noted inseparable; left kidney.; There is no evidence for appendicitis. Large amount of fecal material is seen throughout the colon c; ompatible with constipation. There is no bowel wall thickening. No evidence for small or large bowel; obstruction. There is no evidence of abdominal ascites or lymphadenopathy.; There is no evidence of intrinsic or extrinsic bladder mass. There is no pelvic ascites or lymphadeno; sheldon.; The uterus and ovaries are unremarkable.; Images of the lung bases show no evidence of pleural or parenchymal mass. There are no pleural effusi; ons.; The bony structures are free of lytic or blastic lesions.; IMPRESSION:; Constipation.; 3 mm nonobstructing calculus is noted inseparable left kidney.; Thank you for your kind referral of this patient.; ; Outcome: 20:22 Discharge ordered by Provider. mo1 20:41 Discharge Assessment: Patient awake, alert and oriented x 3. No cognitive and/or slm functional deficits noted. Patient verbalized understanding of disposition instructions. The following High Risk Discharge criteria are identified: None. Discharged to home ambulatory, with significant other. Condition: good. Discharge instructions given to patient, Instructed on discharge instructions, follow up and referral plans. medication usage, Demonstrated understanding of instructions, medications, Pt was receptive of discharge instructions/ teaching. Prescriptions given X 2. Property :Personal belongings accompany Pt. 20:42 Discharge Assessment: patient administered narcotics - no. CT Study completed. slm 20:42 Patient left the ED. slm Signatures: Dispatcher [employer] EDMS Karolyn Gerber, ANALYSIS DIRECTOR ANALYSIS DIRECTOR jam1 Alysia Way, Reg Reg gb Lucia Villalta RN RN Clara Espinoza mt4 Irena Duarte RN RN pml Wallace, Sarah sew O'Hagan, Michael, PA PA mo1 Uma ButlerPAYROLL HUMAN RESOURCES ASSISTANT PAYROLL HUMAN RESOURCES ASSISTANT slm Bora Sloan,RN RN mb9 Moe Lyons,PRO RN jf3 Iman Duran Chart Complete MTDD
== END 2016-07-09 20:42 | disposition home or self-care (01) ==
LOC: M ED 17:07
DX: N39.0 Urinary tract infection, site not specified (principal); N10 Acute pyelonephritis; K59.00 Constipation, unspecified; F17.210 Nicotine dependence, cigarettes, uncomplicated
CPT/HCPCS: 74176; 80048; 80076; 80306; 81001; 83690; 85025; 93005; 96365; 96375; 99284; J0696; J1885

== ENCOUNTER → 2017-08-08 | Outpatient (CLI) | payer OTHER ==
[2017-08-08 14:25] LABS: ALBUMIN/GLOBULIN RATIO 1.05 (1.00-1.93); ALKALINE PHOSPHATASE 78 U/L (45-117); ALT/SGPT 17 U/L (12-78); ANION GAP 6 MEQ/L (8-16); AST/SGOT 9 U/L (7-37); BILIRUBIN,TOTAL 0.5 MG/DL (0.2-1.0); BLOOD UREA NITROGEN 13 MG/DL (7-18); CALCIUM LEVEL 9.4 MG/DL (8.5-10.1); CARBON DIOXIDE LEVEL 29 MEQ/L (21-32); CHLORIDE LEVEL 106 MEQ/L (98-107); CREATININE FOR GFR 0.87 MG/DL (0.55-1.30); GLOMERULAR FILTRATION RATE > 60.0 (>60); GLUCOSE, FASTING 68 MG/DL (70-100); POTASSIUM SERUM 4.4 MEQ/L (3.5-5.1); SODIUM LEVEL 141 MEQ/L (136-145); TOTAL PROTEIN 7.8 GM/DL (6.4-8.2)
== END ==
LOC: M WUC 10:39
DX: Z51.81 Encounter for therapeutic drug level monitoring (principal); Z79.899 Other long term (current) drug therapy; F43.23 Adjustment disorder with mixed anxiety and depressed mood; F43.12 Post-traumatic stress disorder, chronic

== ENCOUNTER → 2018-05-27 | Outpatient (REF) | payer MEDICAID | LOC: M SFHCLERA 15:49 | DX: R39.9 Unspecified symptoms and signs involving the genitourinary system (principal) | CPT/HCPCS: 87186 ==

== ENCOUNTER → 2018-06-02 | Outpatient (REF) | payer MEDICAID ==
[2018-06-02 22:00] LABS: APPEARANCE, URINE CLOUDY (CLEAR); BACTERIA, URINE AUTO NEGATIVE (NEGATIVE); BILIRUBIN, URINE AUTO 1+ (NEGATIVE); BLOOD, URINE BLOOD 2+ (NEGATIVE); CALCIUM OXALATE CRYSTALS LARGE; COLOR, URINE AMBER (YELLOW); GLUCOSE, URINE (UA) AUTO NEGATIVE (NEGATIVE); KETONE, URINE AUTO TRACE mg/dL (NEGATIVE); LEUKOCYTE ESTERASE, URINE AUTO 3+ (NEGATIVE); MUCUS, URINE LARGE (NEGATIVE); NITRITE, URINE AUTO NEGATIVE (NEGATIVE); PROTEIN, URINE AUTO 2+ mg/dL (NEGATIVE); RBC, URINE AUTO 157 /HPF (0-3); SPECIFIC GRAVITY URINE AUTO 1.027 (1.002-1.035); SQUAMOUS EPITHELIAL CELL UR AU 5 /HPF (0-6); WBC, URINE AUTO TNTC /HPF (0-3)
== END ==
LOC: M LAB REF 11:25
PROVIDERS: ATTEND Nurse Practitioner Family
DX: N39.0 Urinary tract infection, site not specified (principal)

== ENCOUNTER 2018-06-11 21:02 | Emergency (ER) | payer MEDICAID ==
[~2018-06-11] VITALS: Ht 154.9 cm; Wt 59.7 kg
[2018-06-11 21:45] VITALS: BP 120/70
== END 2018-06-11 21:55 | disposition left against medical advice (07) ==
LOC: M ED 21:02
DX: F11.10 Opioid abuse, uncomplicated (principal)

== ENCOUNTER 2018-08-26 12:18 | Emergency (ER) | payer MEDICAID ==
[~2018-08-26] VITALS: Ht 157.5 cm; Wt 59.1 kg
[2018-08-26 12:18] VITALS: BP 148/90
[2018-08-26] MEDS ORDERED: DEPO150I IM (12:44)
[2018-08-26 13:15] LABS: INFLUENZA A AMPLIFICATION NEGATIVE (NEGATIVE); INFLUENZA B AMPLIFICATION NEGATIVE (NEGATIVE)
[2018-08-26] MEDS ORDERED: ONDA4TAB6 PO (15:22)
[2018-08-26] MEDS ORDERED: IBUP-1022 PO (15:22)
[2018-08-26] MEDS ORDERED: ZYRTTAB8 PO (15:22)
[2018-08-26] MEDS ORDERED: LIDO1SOL7 PO (15:22)
[2018-08-26] MEDS ORDERED: IBUPROFEN 600 MG TAB PO ONE (15:30)
[2018-08-26] MEDS ORDERED: LIDOCAINE VISCOUS 2% SOLN 15ML UDC SS ONE (15:30)
[2018-08-26] MEDS ORDERED: ONDANSETRON 4 MG ORAL DISINTEGRATING TAB (Q0162 PER 1MG) PO ONE (15:30)
== END 2018-08-26 15:45 | disposition home or self-care (01) ==
LOC: M ED 15:41
DX: J30.9 Allergic rhinitis, unspecified (principal); R11.2 Nausea with vomiting, unspecified; F17.210 Nicotine dependence, cigarettes, uncomplicated; Z79.3 Long term (current) use of hormonal contraceptives

== ENCOUNTER 2018-08-28 12:22 | Inpatient (IN) | payer MEDICAID, OTHER ==
[~2018-08-28] VITALS: Ht 157.5 cm; Wt 56.4 kg
[~2018-08-28 12:22] MED LIST changes: +DEPO150I IM; +IBUP-1022 PO; +LIDO1SOL7 PO; +ONDA4TAB6 PO; +ZYRTTAB8 PO
[2018-08-28 14:31] LABS: HEMATOCRIT 36.7 % (36.0-47.0); HEMOGLOBIN 12.3 g/dl (12.0-15.5); MEAN CORPUSCULAR HEMOGLOBIN 28.1 pg (27.0-33.0); MEAN CORPUSCULAR HGB CONC 33.5 g/dl (32.0-36.5); PLATELET COUNT, AUTOMATED 197 10^3/uL (150-450); RED BLOOD COUNT 4.37 10^6/uL (4.00-5.40); WHITE BLOOD COUNT 5.9 10^3/uL (4.0-10.0)
[2018-08-28 15:16] LABS: ACETAMINOPHEN LEVEL < 2.0 UG/ML (10.0-30.0); ALBUMIN 3.7 GM/DL (3.2-5.2); ALT/SGPT 41 U/L (12-78); BILIRUBIN,DIRECT 0.1 MG/DL (0.0-0.2); BILIRUBIN,TOTAL 0.4 MG/DL (0.2-1.0); BLOOD UREA NITROGEN 14 MG/DL (7-18); CALCIUM LEVEL 8.6 MG/DL (8.5-10.1); CARBON DIOXIDE LEVEL 28 MEQ/L (21-32); CHLORIDE LEVEL 107 MEQ/L (98-107); CREATININE FOR GFR 0.89 MG/DL (0.55-1.30); ETHYL ALCOHOL (ETHANOL) < 0.003 % (0.000-0.010); GLOMERULAR FILTRATION RATE > 60.0 (>60); GLUCOSE, FASTING 94 MG/DL (70-100); POTASSIUM SERUM 4.3 MEQ/L (3.5-5.1); SALICYLATE LEVEL 2.6 MG/DL (5.0-30.0); SODIUM LEVEL 141 MEQ/L (136-145); TOTAL PROTEIN 7.1 GM/DL (6.4-8.2)
[2018-08-28 15:21] LABS: HCG, SERUM QUALITATIVE NEGATIVE (NEGATIVE)
[2018-08-28 16:43] LABS: AMPHETAMINES LEVEL URINE NEGATIVE (NEGATIVE); BARBITURATES URINE NEGATIVE (NEGATIVE); BENZODIAZEPINES URINE NEGATIVE (NEGATIVE); CANNABINOIDS URINE NEGATIVE (NEGATIVE); COCAINE METABOLITE URINE NEGATIVE (NEGATIVE); METHADONE URINE POSITIVE (NEGATIVE); OPIATES URINE NEGATIVE (NEGATIVE); PHENCYCLIDINE URINE NEGATIVE (NEGATIVE)
[2018-08-28] MEDS ORDERED: IBUP-1022 PO (19:03)
[2018-08-28] MEDS ORDERED: ONDA4TAB6 PO (19:03)
[2018-08-28] MEDS ORDERED: ZYRTTAB8 PO (19:04)
[2018-08-28] MEDS ORDERED: METH10CO3 PO (19:07)
[2018-08-28] MEDS ORDERED: hydrOXYzine 50 MG TAB PO PRN (20:00)
[2018-08-28] MEDS ORDERED: ACETAMINOPHEN TAB 650MG DOSE (2X325MG) PO PRN (20:00)
[2018-08-28] MEDS ORDERED: MOM 30ML SUSPENSION UDC PO PRN (20:00)
[2018-08-28] MEDS ORDERED: MAALOX 30 ML SUSP *UDC PO PRN (20:00)
[2018-08-28] MEDS ORDERED: LORazepam 2 MG TAB PO PRN (20:00)
[2018-08-28 23:24] VITALS: BP 128/71
[2018-08-28 23:30] VITALS: BP 128/71
[2018-08-29] MEDS: QUEtiapine FUMARATE 50 MG TAB PO SCH ×2 (00:28→21:52)
[2018-08-29] MEDS: THIAMINE 100 MG TAB PO SCH ×3 (00:28→21:52)
[2018-08-29 06:37] VITALS: BP 114/57
[2018-08-29 06:38] VITALS: BP 114/57
[2018-08-29] MEDS: FOLIC ACID 1 MG TAB PO SCH (08:55)
[2018-08-29] MEDS: MULTIVITAMINS/MINERALS THERAP 1 TAB PO SCH (08:55)
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
[2018-08-29] MEDS: DOXYCYCLINE HYCLATE 100 MG TAB PO SCH ×2 (12:10→21:52)
[2018-08-29] MEDS: LACTOBACILLUS ACIDOPHILUS CAP (BACID) PO SCH ×3 (12:10→21:52)
[2018-08-29] MEDS: CETIRIZINE (ZyrTEC) 10 MG TAB PO SCH (12:10)
[2018-08-29] MEDS: CLOTRIMAZOLE 1% TOPICAL CREAM 30GM TOP SCH ×2 (12:11→21:00)
--- NOTE | 2018-08-29 13:51 | REP ---
BILATERAL UPPER EXTREMITY DOPPLER VENOUS ULTRASOUND: 08/29/2018 CLINICAL HISTORY: Bilateral injection sites, bilateral hand and arm pain. Evaluate for DVT or other. FINDINGS: Standard duplex techniques utilized. The bilateral jugular and subclavian veins show color flow images filling their lumen. There is respiratory variation and augmented flow. The axillary and brachial veins also show color flow and duplex Doppler, respiratory variation and augmentation with compression. Both the basilic and cephalic veins were unremarkable bilaterally. IMPRESSION: 1. There is no ultrasound evidence of DVT in the bilateral upper extremities. Electronically Signed by Glynn Triana MD 08/29/2018 07:49 P
[2018-08-29] MEDS: METHADONE 10 MG TAB (S0109) PO SCH (15:22)
--- NOTE | 2018-08-29 15:22 | ECGEPIP ---
Stationary ECG Study [facility] Test Date: 2018-08-29 Pat Name: ZOE BURNS Department: Room: [place] [address] Gender: F Receiving Manager: EBER : 1990 Requested By: Mercedes Montes Order Number: [id number] Reading MD: Ajay Schmitt Measurements Intervals [place] Rate: 78 P: 73 [place]: 161 QRS: 66 QRSD: 90 T: 22 QT: 348 QTc: 399 Interpretive Statements Normal sinus rhythm Delayed anterior R wave progression Nonspecific T wave abnormality Compared to prior tracing of 07/09/2016 the heart rate is slower and repolarization abnormalities are new Electronically Signed On 08-29-2018 15:21:50 EDT by Ajay Schmitt
[2018-08-29 18:00] VITALS: BP 128/64
[2018-08-30 06:20] VITALS: BP 104/55
--- NOTE | 2018-08-30 09:03 | MHDSPDOC ---
[facility] Discharge Summary Discharge Summary DATE OF ADMISSION: Aug 28, 2018 at 7:49 pm DATE OF DISCHARGE: Aug 30, 2018 DISCHARGE DIAGNOSES: Depression Unspecified R/o adjustment d/o with depression and anxiety Opiate use d/o - on maintenance treatment History of methamphetamine use d/o REASON FOR ADMISSION: Patient is a 28 -year-old , female, with a history of methamphetamine and opiate abuse who brought in to ED on 9.41 by PO officer Geraldine Forman after pt's grandmother called her stating pt was voicing thoughts of suicide after pt's mother called grandmother stating pt had sent her a message about being suicidal and taking an unknown number of antidepressants the previous night. Pt in ED denying being suicidal or taking an OD of pills stating her grandmother is upset with her b/c pt unable to or unwilling to sign over parental rights of her 8y/o son for her grandmother to adopt. Pt, per ED, stated she went to the [employer] the previous day to sign over parental rights but could go thru with it. She also admitted to buying Lizette 2 days ago that she guesses ended up being methamphetamine. 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 She is currently on Methadone thru [facility]. CONSULTANTS INVOLVED: none TESTS: BILATERAL UPPER EXTREMITY DOPPLER VENOUS ULTRASOUND: 08/29/2018 CLINICAL HISTORY: Bilateral injection sites, bilateral hand and arm pain. Evaluate for DVT or other. FINDINGS: Standard duplex techniques utilized. The bilateral jugular and subclavian veins show color flow images filling their lumen. There is respiratory variation and augmented flow. The axillary and brachial veins also show color flow and duplex Doppler, respiratory variation and augmentation with compression. Both the basilic and cephalic veins were unremarkable bilaterally. IMPRESSION: 1. There is no ultrasound evidence of DVT in the bilateral upper extremities. TREATMENT AND PROGRESS ON THE UNIT : Pt was admitted to [facility], seen for psychiatric assessment and restarted on her methadone 80mg daily as prescribed by [facility] in [place] for opiate addiction. She was provided trazodone 50mg qhs prn insomnia. Pt found her medications beneficial and tolerated them well. She attended groups daily during her stay. Her symptoms improved with treatment. On day of discharge she denied depression, anxiety, insomnia, SI/HI, hallucinations, delusions. She was discharged home after family meeting with her grandmother with follow-up at [facility] in [place]. She felt safe for discharge DISCHARGE ASSESSMENT:Pt seen and states she's doing well and looking forward to being discharged home today. She attended groups during her stay and found them beneficial. She denies depression, anxiety, insomnia, SI/HI, hallucinations, delusions. Denies opiate withdrawal. Feels safe to be discharged home today. MENTAL STATUS EXAMINATION ON DISCHARGE: General Appearance: well groomed, appears stated age, hospital scrubs/clothing, other (tatoos "hate" and "love" on dorsal aspect of b/l fingers) Build: average Demeanor: cooperative Eye Contact: good Activity: cooperative, calm Behavior: cooperative Speech: clear, normal volume, reg/rate,rhythm,volume Mood: euthymic, full Mood "good" Affect: congruent, euthymic, full Thought Process: logical/linear, intact Thought Content (Delusions): none reported, denies SI, HI, AVH Thought Content (Other): none reported Thought Content (Aggressive): none reported Perception (Hallucinations): none reported Perception (Other): none reported Cognition (Impairment of): none reported Cognition(Intelligence Est.): average Oriented: Awake, Alert, Oriented times three Insight: good Judgment: good Psychosis: Denies MEDICATIONS ON DISCHARGE: - methadone 80mg daily prescribed by [facility] in [place]. PLAN/FOLLOWUP ARRANGEMENTS: follow-up with [facility] in [place]. The amount of time spent in the coordination of care for this patient was approximately 30 minutes. Vital Signs/I&Os Vital Signs Date Time Temp Pulse Resp B/P (MAP) Pulse Ox O2 Delivery O2 Flow Rate FiO2 08/30/18 06:20 97.5 81 12 104/55 (71) 08/28/18 23:14 99 Room Air Medications Scheduled Methadone HCl (Methadone HCl Intensol) 10 Mg/Ml Con, 80 MG PO DAILY, (Reported) Scheduled PRN (Zyrtec-D Allergy/Congesti 5-120 mg) 1 Tab Tab, 1 TAB PO BID PRN for ALLERGY SYMPTOMS, (Reported) Ibuprofen (Ibuprofen) 600 Mg Tab, 600 MG PO Q6H PRN for PAIN, (Reported) Ondansetron (Ondansetron Odt) 4 Mg Tab, 4 MG PO Q6H PRN for NAUSEA OR VOMITING, (Reported) Allergies Coded Allergies: No Known Allergies (Verified , 02/03/10) CORDELIA MASON DO Aug 30, 2018 9:03 am
[2018-08-30] MEDS: THIAMINE 100 MG TAB PO SCH (09:18)
[2018-08-30] MEDS: METHADONE 10 MG TAB (S0109) PO SCH (09:18)
[2018-08-30] MEDS: FOLIC ACID 1 MG TAB PO SCH (09:18)
[2018-08-30] MEDS: LACTOBACILLUS ACIDOPHILUS CAP (BACID) PO SCH (09:18)
[2018-08-30] MEDS: CETIRIZINE (ZyrTEC) 10 MG TAB PO SCH (09:18)
[2018-08-30] MEDS: DOXYCYCLINE HYCLATE 100 MG TAB PO SCH (09:18)
[2018-08-30] MEDS: MULTIVITAMINS/MINERALS THERAP 1 TAB PO SCH (09:18)
[2018-08-30] MEDS: CLOTRIMAZOLE 1% TOPICAL CREAM 30GM TOP SCH (09:19)
== END 2018-08-30 15:00 | disposition home or self-care (01) | DRG 754 ==
LOC: M ED 12:22 → M ED INP 19:49 → M PSY 23:22
PROVIDERS: ADMIT Psychiatry & Neurology Psychiatry; ATTEND Psychiatry & Neurology Psychiatry
DX: F32.9 Major depressive disorder, single episode, unspecified (principal); F43.23 Adjustment disorder with mixed anxiety and depressed mood; F11.20 Opioid dependence, uncomplicated; F15.20 Other stimulant dependence, uncomplicated; F17.210 Nicotine dependence, cigarettes, uncomplicated; J30.9 Allergic rhinitis, unspecified; Z87.81 Personal history of (healed) traumatic fracture; Z91.410 Personal history of adult physical and sexual abuse; Z65.2 Problems related to release from prison

== ENCOUNTER → 2018-10-07 | Outpatient (CLI) | payer MEDICAID, OTHER ==
[~2018-10-07] MED LIST changes: -LIDO1SOL7 PO; +LIDO1SOL8 PO; +METH10CO3 PO
== END ==
LOC: M LAB 10:56
PROVIDERS: ATTEND Obstetrics & Gynecology
DX: F11.20 Opioid dependence, uncomplicated (principal); F15.23 Other stimulant dependence with withdrawal; F17.200 Nicotine dependence, unspecified, uncomplicated; Z53.9 Procedure and treatment not carried out, unspecified reason

== ENCOUNTER 2019-02-26 02:03 | Emergency (ER) | payer MEDICAID, OTHER ==
[~2019-02-26] VITALS: Ht 157.5 cm; Wt 54.5 kg
[2019-02-26] MEDS: ACETAMINOPHEN 325 MG TAB PO ONE (02:27)
[2019-02-26] MEDS: NS 1,000 ML IV ONE ×2 (03:08→03:32)
[2019-02-26 03:17] LABS: BASO % 0.1 % (0.0-1.0); EOS % 0.2 % (0.0-3.0); HEMATOCRIT 35.7 % (36.0-47.0); LYMPH # 1.2 10^3/uL (1.5-5.0); LYMPH % 8.1 % (24.0-44.0); MEAN CORPUSCULAR HEMOGLOBIN 29.4 pg (27.0-33.0); MEAN CORPUSCULAR HGB CONC 33.6 g/dl (32.0-36.5); MEAN CORPUSCULAR VOLUME 87.5 fl (80.0-96.0); MONO # 1.3 10^3/uL (0.0-0.8); MONO % 8.7 % (0.0-5.0); NEUTROPHILS % 82.6 % (36.0-66.0); PLATELET COUNT, AUTOMATED 158 10^3/uL (150-450); RED BLOOD COUNT 4.08 10^6/uL (4.00-5.40); WHITE BLOOD COUNT 14.5 10^3/uL (4.0-10.0)
[2019-02-26 03:39] LABS: HCG, SERUM QUALITATIVE NEGATIVE (NEGATIVE)
[2019-02-26 03:42] LABS: ALBUMIN 3.1 GM/DL (3.2-5.2); ALT/SGPT 180 U/L (12-78); BILIRUBIN,DIRECT 0.2 MG/DL (0.0-0.2); BILIRUBIN,TOTAL 0.4 MG/DL (0.2-1.0); BLOOD UREA NITROGEN 16 MG/DL (7-18); CALCIUM LEVEL 8.5 MG/DL (8.5-10.1); CARBON DIOXIDE LEVEL 24 MEQ/L (21-32); CHLORIDE LEVEL 109 MEQ/L (98-107); CREATININE FOR GFR 0.94 MG/DL (0.55-1.30); GLOMERULAR FILTRATION RATE > 60.0 (>60); GLUCOSE, FASTING 106 MG/DL (70-100); POTASSIUM SERUM 3.9 MEQ/L (3.5-5.1); SODIUM LEVEL 141 MEQ/L (136-145); TOTAL PROTEIN 6.5 GM/DL (6.4-8.2)
[2019-02-26 03:53] LABS: INFLUENZA A AMPLIFICATION NEGATIVE (NEGATIVE); INFLUENZA B AMPLIFICATION NEGATIVE (NEGATIVE)
[2019-02-26] MEDS: IBUPROFEN 600 MG TAB PO ONE (04:05)
[2019-02-26 04:08] LABS: APPEARANCE, URINE HAZY (CLEAR); BACTERIA, URINE AUTO 3+ (NEGATIVE); BILIRUBIN, URINE AUTO NEGATIVE (NEGATIVE); BLOOD, URINE BLOOD NEGATIVE (NEGATIVE); COLOR, URINE YELLOW (YELLOW); GLUCOSE, URINE (UA) AUTO NEGATIVE (NEGATIVE); KETONE, URINE AUTO NEGATIVE (NEGATIVE); LEUKOCYTE ESTERASE, URINE AUTO 3+ (NEGATIVE); MUCUS, URINE SMALL (NEGATIVE); NITRITE, URINE AUTO POSITIVE (NEGATIVE); PROTEIN, URINE AUTO NEGATIVE (NEGATIVE); RBC, URINE AUTO 20 /HPF (0-3); SPECIFIC GRAVITY URINE AUTO 1.016 (1.002-1.035); SQUAMOUS EPITHELIAL CELL UR AU 0 /HPF (0-6); WBC, URINE AUTO TNTC /HPF (0-3)
[2019-02-26] MEDS: NS 1,000 ML IV SCH (04:43)
[2019-02-26] MEDS: cefTRIAXone SOD 1 GM in D5W MINI-BAG PLUS 50 ML IV ONE (04:43)
--- NOTE | 2019-02-26 07:14 | ECGEPIP ---
[facility] - ED Test Date: 2019-02-26 Pat Name: ZOE BURNS Department: Room: - Gender: Female Customer Service Advisor: kong : 1990 Requested By: PEPE Merida Order Number: [id number] Reading MD: Mau Ryan Measurements Intervals [place] Rate: 124 P: 70 DE: 154 QRS: 61 QRSD: 88 T: 61 QT: 408 QTc: 587 Interpretive Statements SINUS TACHYCARDIA NONSPECIFIC T-WAVE ABNORMALITY RATE CHANGE COMPARED TO 08/29/18 Electronically Signed on 02-26-2019 7:14:09 EDT by Mau Ryan
[2019-02-26 07:24] VITALS: BP 109/56
--- NOTE | 2019-02-26 09:14 | REP ---
CHEST, TWO VIEWS: There is no evidence of acute infiltrate. No pleural effusion is seen. The heart is normal in size. The mediastinal silhouette is unremarkable. The visualized osseous structures are intact. IMPRESSION: No acute pulmonary disease. Electronically Signed by Mau Hopkins MD 02/27/2019 08:03 A
[2019-02-27] MEDS ORDERED: MACR100C43 PO (10:11)
[2019-02-27] MEDS ORDERED: CIPR-249 PO (16:43)
== END 2019-02-26 07:36 | disposition home or self-care (01) ==
LOC: M ED 02:03
DX: N39.0 Urinary tract infection, site not specified (principal); F31.9 Bipolar disorder, unspecified; F41.9 Anxiety disorder, unspecified; F90.9 Attention-deficit hyperactivity disorder, unspecified type; F43.10 Post-traumatic stress disorder, unspecified; B18.2 Chronic viral hepatitis C; F11.20 Opioid dependence, uncomplicated; Z79.899 Other long term (current) drug therapy
CPT/HCPCS: 71046; 80048; 80076; 81001; 83605; 84703; 85025; 87040; 87088; 87186; 87502; 93005; 93041; 94760; 96365; 99285; J0696

== ENCOUNTER 2019-05-22 05:28 | Emergency (ER) | payer OTHER ==
[~2019-05-22] VITALS: Ht 154.9 cm; Wt 56.8 kg
[2019-05-22 05:28] VITALS: BP_DIAS 91
[~2019-05-22 05:28] MED LIST changes: +CIPR-249 PO; +MACR100C43 PO
[2019-05-22] MEDS ORDERED: AZITHROMYCIN 250 MG TAB PO ONE (07:15)
[2019-05-22 07:19] VITALS: BP_SYST 143
[2019-05-22 08:16] LABS: CHLAMYDIA DNA AMPLIFICATION POSITIVE (NEGATIVE); GC DNA AMPLIFICATION NEGATIVE (NEGATIVE)
[2019-05-22] MEDS ORDERED: FLAG500T PO (13:32)
--- NOTE | 2019-05-22 13:35 | ED PDOC ---
Post-Departure Follow-Up called patient regarding results for clue cells and chlamydia. notified her to contact any recent sexual partners. all questions were answered. PADMINI HOLLIS PA-C. May 22, 2019 13:35
== END 2019-05-22 07:27 | disposition home or self-care (01) ==
LOC: M ED 05:28
DX: Z20.2 Contact with and (suspected) exposure to infections with a predominantly sexual mode of transmission (principal); A74.9 Chlamydial infection, unspecified; F17.210 Nicotine dependence, cigarettes, uncomplicated

== ENCOUNTER 2019-06-23 17:54 | Emergency (ER) | payer OTHER ==
[~2019-06-23] VITALS: Ht 157.5 cm; Wt 62.1 kg
[2019-06-23 17:54] VITALS: BP 138/80
[~2019-06-23 17:54] MED LIST changes: +FLAG500T PO
[2019-06-23 19:43] LABS: URINE PREG TEST NEGATIVE (NEGATIVE)
[2019-06-23 20:18] LABS: CHLAMYDIA DNA AMPLIFICATION NEGATIVE (NEGATIVE); GC DNA AMPLIFICATION NEGATIVE (NEGATIVE)
[2019-06-23] MEDS ORDERED: FLAG500T PO (20:34)
[2019-06-23] MEDS ORDERED: metroNIDAZOLE (FLAGYL) 500 MG TAB PO ONE (20:45)
[2019-06-25] MEDS ORDERED: KEFL500C17 PO (08:29)
== END 2019-06-23 20:45 | disposition home or self-care (01) ==
LOC: M ED 17:54
DX: N76.0 Acute vaginitis (principal); Z20.2 Contact with and (suspected) exposure to infections with a predominantly sexual mode of transmission; F17.200 Nicotine dependence, unspecified, uncomplicated

== ENCOUNTER 2019-08-05 01:00 | Emergency (ER) | payer OTHER ==
[~2019-08-05] VITALS: Ht 154.9 cm; Wt 61.7 kg
[~2019-08-05 01:00] MED LIST changes: +KEFL500C17 PO; -LIDO1SOL8 PO; +LIDO2SOL17 PO
[2019-08-05 01:01] VITALS: BP 147/90
[2019-08-05 02:58] LABS: URINE PREG TEST NEGATIVE (NEGATIVE)
[2019-08-05 03:03] LABS: APPEARANCE, URINE HAZY (CLEAR); BACTERIA, URINE AUTO 1+ (NEGATIVE); BILIRUBIN, URINE AUTO NEGATIVE (NEGATIVE); BLOOD, URINE BLOOD NEGATIVE (NEGATIVE); COLOR, URINE YELLOW (YELLOW); GLUCOSE, URINE (UA) AUTO NEGATIVE (NEGATIVE); KETONE, URINE AUTO NEGATIVE (NEGATIVE); LEUKOCYTE ESTERASE, URINE AUTO 1+ (NEGATIVE); MUCUS, URINE SMALL (NEGATIVE); NITRITE, URINE AUTO NEGATIVE (NEGATIVE); PROTEIN, URINE AUTO NEGATIVE (NEGATIVE); RBC, URINE AUTO 2 /HPF (0-3); SPECIFIC GRAVITY URINE AUTO 1.028 (1.002-1.035); SQUAMOUS EPITHELIAL CELL UR AU 6 /HPF (0-6); UROBILINOGEN, URINE AUTO 0.2 mg/dL (0.0-2.0); WBC, URINE AUTO 32 /HPF (0-3)
[2019-08-05 04:30] LABS: CHLAMYDIA DNA AMPLIFICATION NEGATIVE (NEGATIVE); GC DNA AMPLIFICATION POSITIVE (NEGATIVE)
[2019-08-06 10:28] LABS: HEPATITIS A ANTIBODY IGM NEGATIVE (NEGATIVE); HEPATITIS B CORE ANTIBODY IGM NEGATIVE (NEGATIVE); HEPATITIS B SURFACE ANTIGEN NEGATIVE (NEGATIVE)
[2019-08-06 10:33] LABS: HEPATITIS C VIRUS ABY INDEX > 11.0 INDEX (<0.8)
== END 2019-08-05 04:14 | disposition home or self-care (01) ==
LOC: M ED 01:00
DX: Z20.2 Contact with and (suspected) exposure to infections with a predominantly sexual mode of transmission (principal); Z20.5 Contact with and (suspected) exposure to viral hepatitis; F17.210 Nicotine dependence, cigarettes, uncomplicated; Z88.3 Allergy status to other anti-infective agents

== ENCOUNTER 2020-02-20 02:34 | Emergency (ER) | payer OTHER ==
[~2020-02-20] VITALS: Ht 157.5 cm; Wt 58.1 kg
[2020-02-20 04:56] LABS: BASO % 0.3 % (0.0-1.0); EOS # 0.2 10^3/uL (0.0-0.5); EOS % 2.5 % (0.0-3.0); HEMATOCRIT 39.1 % (36.0-47.0); HEMOGLOBIN 12.8 g/dl (12.0-15.5); LYMPH # 1.5 10^3/uL (1.5-5.0); LYMPH % 17.1 % (24.0-44.0); MEAN CORPUSCULAR HEMOGLOBIN 28.6 pg (27.0-33.0); MEAN CORPUSCULAR HGB CONC 32.7 g/dl (32.0-36.5); MEAN CORPUSCULAR VOLUME 87.5 fl (80.0-96.0); MONO # 0.6 10^3/uL (0.0-0.8); MONO % 7.2 % (0.0-5.0); NEUTROPHILS # 6.3 10^3/uL (1.5-8.5); NEUTROPHILS % 72.3 % (36.0-66.0); PLATELET COUNT, AUTOMATED 225 10^3/uL (150-450); RED BLOOD COUNT 4.47 10^6/uL (4.00-5.40); WHITE BLOOD COUNT 8.8 10^3/uL (4.0-10.0)
--- NOTE | 2020-02-20 04:58 | REPVR ---
PROCEDURE INFORMATION: Exam: XR Left Elbow Exam date and time: 02/20/2020 4:37 AM Age: 29 years old Clinical indication: Other: R/O osteomyelitis TECHNIQUE: Imaging protocol: XR Left elbow. Views: 3 or more views. COMPARISON: No relevant prior studies available. FINDINGS: Bones/joints: Normal. No fracture. No joint effusion. Soft tissues: Normal. IMPRESSION: Negative left elbow. Electronically signed by: Vadim Kimbrough On 02/20/2020 04:57:52 AM
[2020-02-20 05:03] VITALS: BP 123/79
[2020-02-20 05:34] LABS: HCG, SERUM QUALITATIVE NEGATIVE (NEGATIVE)
[2020-02-20 05:42] LABS: ALBUMIN 2.8 GM/DL (3.2-5.2); ALT/SGPT 94 U/L (12-78); BILIRUBIN,DIRECT 0.1 MG/DL (0.0-0.2); BILIRUBIN,TOTAL 0.2 MG/DL (0.2-1.0); BLOOD UREA NITROGEN 10 MG/DL (7-18); C REACTIVE PROTEIN QUANTITATIV 6.65 MG/DL (0.00-0.30); CALCIUM LEVEL 8.4 MG/DL (8.5-10.1); CARBON DIOXIDE LEVEL 26 MEQ/L (21-32); CHLORIDE LEVEL 104 MEQ/L (98-107); CREATININE FOR GFR 0.82 MG/DL (0.55-1.30); GLOMERULAR FILTRATION RATE > 60.0 (>60); GLUCOSE, FASTING 91 MG/DL (70-100); SODIUM LEVEL 138 MEQ/L (136-145); TOTAL PROTEIN 7.7 GM/DL (6.4-8.2)
[2020-02-20] MEDS ORDERED: BACT800T5 PO (07:24)
== END 2020-02-20 07:32 | disposition left against medical advice (07) ==
LOC: M ED 02:34
DX: L02.416 Cutaneous abscess of left lower limb (principal); F11.188 Opioid abuse with other opioid-induced disorder; F17.200 Nicotine dependence, unspecified, uncomplicated

== ENCOUNTER 2020-07-12 16:58 | Emergency (ER) | payer OTHER ==
[~2020-07-12] VITALS: Ht 157.5 cm; Wt 57.9 kg
[~2020-07-12 16:58] MED LIST changes: +BACT800T5 PO
[2020-07-12 18:29] LABS: BASO % 0.4 % (0.0-1.0); EOS # 0.2 10^3/uL (0.0-0.5); EOS % 1.7 % (0.0-3.0); HEMATOCRIT 41.2 % (36.0-47.0); HEMOGLOBIN 13.1 g/dl (12.0-15.5); LYMPH # 2.2 10^3/uL (1.5-5.0); LYMPH % 25.2 % (24.0-44.0); MEAN CORPUSCULAR HGB CONC 31.8 g/dl (32.0-36.5); MEAN CORPUSCULAR VOLUME 84.8 fl (80.0-96.0); MONO # 0.6 10^3/uL (0.0-0.8); NEUTROPHILS # 5.8 10^3/uL (1.5-8.5); NEUTROPHILS % 65.3 % (36.0-66.0); PLATELET COUNT, AUTOMATED 353 10^3/uL (150-450); RED BLOOD COUNT 4.86 10^6/uL (4.00-5.40); WHITE BLOOD COUNT 8.9 10^3/uL (4.0-10.0)
[2020-07-12 18:56] LABS: ALBUMIN 3.3 GM/DL (3.2-5.2); ALT/SGPT 56 U/L (12-78); BILIRUBIN,DIRECT < 0.1 MG/DL (0.0-0.2); BILIRUBIN,TOTAL 0.2 MG/DL (0.2-1.0); LIPASE 51 U/L (73-393); TOTAL PROTEIN 9.2 GM/DL (6.4-8.2)
[2020-07-12] MEDS ORDERED: LIDOCAINE 1% SDV 5ML VIAL DILUENT ONE (19:15)
[2020-07-12] MEDS ORDERED: cefTRIAXone 500MG VIAL (J0696 PER 250MG) IM ONE (19:15)
[2020-07-12] MEDS ORDERED: DOXY100C37 PO (19:19)
[2020-07-12 19:40] VITALS: BP 122/79
[2020-07-12 20:53] LABS: CHLAMYDIA DNA AMPLIFICATION POSITIVE (NEGATIVE); GC DNA AMPLIFICATION NEGATIVE (NEGATIVE)
--- NOTE | 2020-07-14 21:17 | ED PDOC ---
Post-Departure Follow-Up Patient was seen in ED on the and left before her test results were complet e. Patient was treated with Rocephin and given a prescription for Doxycycline to treat GC and Chlamydia prophylactic. Patient test result came back negative for GC and Chlamydia, positive for trichomoniasis. The patient is allergic to metronidazole (itching sever). I called patient to stop taking Doxycycline while I was waiting for the pharmacist to get back to me for a good substitute for the metronidazole, he said there was not one. Patient will need to come into the ED to be given medication with Benadryl and observed. Called patient to discuss twice and she did not answer. I will attempt to call her again tomorrow. MONSTER FREIRE PA-C Jul 14, 2020 21:17
--- NOTE | 2020-07-16 10:03 | ED PDOC ---
Post-Departure Follow-Up 07/16/20 Patient was called again to make sure she knew she had to come to the ED to get her metronidazole with Benadryl and observation to treat her Trichomonias. Patient has allergy to metronidazole (itching) but there is no other good substitute. Confirmed this with hospital pharmacist and Dr. Henry. MONSTER FREIRE PA-C Jul 16, 2020 10:03
== END 2020-07-12 19:50 | disposition home or self-care (01) ==
LOC: M ED 16:58
DX: Z20.2 Contact with and (suspected) exposure to infections with a predominantly sexual mode of transmission (principal); R10.32 Left lower quadrant pain; Z88.8 Allergy status to other drugs, medicaments and biological substances; F17.200 Nicotine dependence, unspecified, uncomplicated
CPT/HCPCS: 80047; 80076; 83690; 84702; 85025; 87210; 87661; 96372; 99283; J0696

== ENCOUNTER 2020-10-19 06:05 | Emergency (ER) | payer OTHER ==
[~2020-10-19] VITALS: Ht 157.5 cm; Wt 57.1 kg
[~2020-10-19 06:05] MED LIST changes: +DOXY100C37 PO
[2020-10-19] MEDS ORDERED: ZITH1POW PO (07:42)
[2020-10-19 08:21] VITALS: BP 136/84
[2020-10-19 08:54] LABS: CHLAMYDIA DNA AMPLIFICATION POSITIVE (NEGATIVE); GC DNA AMPLIFICATION NEGATIVE (NEGATIVE)
== END 2020-10-19 08:23 | disposition home or self-care (01) ==
LOC: M ED 06:05
DX: A74.9 Chlamydial infection, unspecified (principal); Z88.1 Allergy status to other antibiotic agents; Z88.8 Allergy status to other drugs, medicaments and biological substances; F17.210 Nicotine dependence, cigarettes, uncomplicated

== ENCOUNTER → 2022-04-05 | Outpatient (CLI) | payer OTHER ==
[~2022-04-05] MED LIST changes: +DOXY-443 PO; -DOXY100C37 PO; +ZITH1POW PO
== END ==
LOC: M WHC 14:54
PROVIDERS: ATTEND Physician Assistant Medical
DX: Z32.01 Encounter for pregnancy test, result positive (principal)

== ENCOUNTER 2022-06-24 21:33 | Emergency (ER) | payer OTHER ==
[~2022-06-24] VITALS: Ht 157.5 cm; Wt 78.0 kg
[2022-06-24] MEDS ORDERED: PRENTAB7 PO (21:41)
[2022-06-24 23:24] LABS: URIC ACID 3.6 MG/DL (3.1-7.8)
[2022-06-24 23:26] LABS: MAGNESIUM LEVEL 1.7 MG/DL (1.8-2.4)
[2022-06-24 23:27] LABS: ALBUMIN 2.5 G/DL (3.2-5.2); ALKALINE PHOSPHATASE 115 U/L (46-116); ALT/SGPT 16 U/L (7.0-40); AST/SGOT 22 U/L (<34); BILIRUBIN,DIRECT < 0.1 MG/DL (<0.4); BILIRUBIN,TOTAL 0.2 MG/DL (0.3-1.2); BLOOD UREA NITROGEN 9 MG/DL (9-23); CALCIUM LEVEL 8.6 MG/DL (8.5-10.1); CARBON DIOXIDE LEVEL 25 MMOL/L (20-31); CHLORIDE LEVEL 106 MMOL/L (98-107); CREATININE FOR GFR 0.61 MG/DL (0.55-1.30); GLOMERULAR FILTRATION RATE > 60.0 (>60); GLUCOSE, FASTING 81 MG/DL (60-100); POTASSIUM SERUM 4.1 MMOL/L (3.5-5.1); SODIUM LEVEL 139 MMOL/L (136-145); TOTAL PROTEIN 6.6 G/DL (5.7-8.2)
[2022-06-24 23:31] LABS: BASO % 0.3 % (0.0-1.0); EOS # 0.2 10^3/uL (0.0-0.5); EOS % 1.4 % (0.0-3.0); HEMATOCRIT 31.8 % (36.0-47.0); HEMOGLOBIN 10.6 g/dl (12.0-15.5); LYMPH # 2.3 10^3/uL (1.5-5.0); LYMPH % 20.5 % (24.0-44.0); MEAN CORPUSCULAR HEMOGLOBIN 30.3 pg (27.0-33.0); MEAN CORPUSCULAR HGB CONC 33.3 g/dl (32.0-36.5); MEAN CORPUSCULAR VOLUME 90.9 fl (80.0-96.0); MONO # 0.7 10^3/uL (0.0-0.8); MONO % 6.3 % (2.0-8.0); NEUTROPHILS # 7.8 10^3/uL (1.5-8.5); NEUTROPHILS % 70.8 % (36.0-66.0); PLATELET COUNT, AUTOMATED 205 10^3/uL (150-450)
[2022-06-24 23:44] LABS: INR 0.88; PROTHROMBIN TIME 12.1 SECONDS (12.5-14.5)
[2022-06-24 23:45] LABS: PARTIAL THROMBOPLASTIN TIME 31.3 SECONDS (24.8-34.2)
[2022-06-24 23:53] LABS: APPEARANCE, URINE MANUAL HAZY (CLEAR); COLOR, URINE MANUAL YELLOW (YELLOW)
[2022-06-24 23:54] LABS: BILIRUBIN, URINE MANUAL NEGATIVE (NEGATIVE); BLOOD URINE MANUAL NEGATIVE (NEGATIVE); GLUCOSE, URINE (UA) MANUAL NEGATIVE (NEGATIVE); KETONE, URINE MANUAL NEGATIVE (NEGATIVE); NITRITE, URINE MANUAL POSITIVE (NEGATIVE); PROTEIN, URINE MANUAL NEGATIVE (NEGATIVE); SPECIFIC GRAVITY,URINE MANUAL 1.015 (1.002-1.035); UROBILINOGEN, URINE MANUAL NORMAL (NORMAL)
[2022-06-24 23:57] LABS: LEUKOCYTE ESTERASE, URINE MAN TRACE (NEGATIVE)
[2022-06-25 00:02] LABS: BACTERIA, URINE LARGE AMOUNT; HYALINE CAST, URINE NONE SEEN /lpf (0-1); MUCUS, URINE SMALL AMOUNT (NEGATIVE); RBC, URINE 0-1 /hpf (0-3); SQUAMOUS EPITHELIAL CELL URINE SMALL AMOUNT /hpf (SMALL AMT)
[2022-06-25 00:17] LABS: TOTAL PROTEIN,RANDOM URINE 20.3 MG/DL (0.0-14.0)
[2022-06-25 00:22] LABS: CREATININE,RANDOM URINE 145.1 MG/DL
[2022-06-25 01:28] VITALS: BP 122/75
[2022-06-28] MEDS ORDERED: CEPH500C PO (08:32)
== END 2022-06-25 01:30 | disposition home or self-care (01) ==
LOC: M ED 21:33
DX: R60.0 Localized edema (principal); F17.200 Nicotine dependence, unspecified, uncomplicated; Z88.1 Allergy status to other antibiotic agents; Z88.8 Allergy status to other drugs, medicaments and biological substances; Z79.899 Other long term (current) drug therapy

== ENCOUNTER → 2022-09-12 | Outpatient (REF) | payer OTHER ==
[~2022-09-12] MED LIST changes: +CEPH500C PO; +LIDO15SO4 PO; -LIDO2SOL17 PO; +PRENTAB7 PO
[2022-09-12 18:00] LABS: AMORPHOUS SEDIMENT SMALL (NEGATIVE); APPEARANCE, URINE HAZY (CLEAR); BACTERIA, URINE AUTO NEGATIVE (NEGATIVE); BILIRUBIN, URINE AUTO NEGATIVE (NEGATIVE); BLOOD, URINE BLOOD 1+ (NEGATIVE); COLOR, URINE YELLOW (YELLOW); GLUCOSE, URINE (UA) AUTO NEGATIVE (NEGATIVE); KETONE, URINE AUTO NEGATIVE (NEGATIVE); LEUKOCYTE ESTERASE, URINE AUTO TRACE (NEGATIVE); MUCUS, URINE SMALL (NEGATIVE); NITRITE, URINE AUTO NEGATIVE (NEGATIVE); PROTEIN, URINE AUTO NEGATIVE (NEGATIVE); RBC, URINE AUTO 1 /HPF (0-3); SPECIFIC GRAVITY URINE AUTO 1.014 (1.002-1.035); SQUAMOUS EPITHELIAL CELL UR AU 9 /HPF (0-6); UROBILINOGEN, URINE AUTO 0.2 mg/dL (0.0-2.0); WBC, URINE AUTO 5 /HPF (0-3)
== END ==
LOC: M LAB REF 17:22
PROVIDERS: ATTEND Physician Assistant
DX: N39.0 Urinary tract infection, site not specified (principal)

== ENCOUNTER 2022-10-19 12:15 | Emergency (ER) | payer OTHER ==
[~2022-10-19] VITALS: Ht 157.5 cm; Wt 69.0 kg
[~2022-10-19 12:15] MED LIST changes: +LIDO15SO PO; -LIDO15SO4 PO
[2022-10-19] MEDS ORDERED: IBUP200T46 PO (12:23)
[2022-10-19 15:08] LABS: HEMATOCRIT 32.3 % (36.0-47.0); HEMOGLOBIN 9.9 g/dl (12.0-15.5); MEAN CORPUSCULAR HEMOGLOBIN 25.8 pg (27.0-33.0); MEAN CORPUSCULAR HGB CONC 30.7 g/dl (32.0-36.5); MEAN CORPUSCULAR VOLUME 84.1 fl (80.0-96.0); PLATELET COUNT, AUTOMATED 274 10^3/uL (150-450); RED BLOOD COUNT 3.84 10^6/uL (4.00-5.40); WHITE BLOOD COUNT 21.6 10^3/uL (4.0-10.0)
[2022-10-19 15:20] LABS: ALBUMIN 3.4 G/DL (3.2-5.2); ALKALINE PHOSPHATASE 163 U/L (46-116); ALT/SGPT 56 U/L (7.0-40); AST/SGOT 97 U/L (<34); BILIRUBIN,DIRECT 0.1 MG/DL (<0.4); BILIRUBIN,TOTAL 0.4 MG/DL (0.3-1.2); LIPASE 16 U/L (12-53); TOTAL PROTEIN 7.6 G/DL (5.7-8.2)
[2022-10-19] MEDS ORDERED: DALBAVANCIN 1,500 MG in D5W 250 ML IV ONE ×2 (15:30→17:25)
[2022-10-19] MEDS ORDERED: ACETAMINOPHEN TAB 650MG DOSE (2X325MG) PO ONE (15:50)
[2022-10-19 16:38] LABS: HCG, SERUM QUALITATIVE NEGATIVE (NEGATIVE)
[2022-10-19] MEDS ORDERED: NITROFURANTOIN (MACROBID) 100 MG CAP PO ONE (17:25)
[2022-10-19] MEDS ORDERED: MACR100C43 PO (18:25)
[2022-10-19 19:36] VITALS: BP 130/60
== END 2022-10-19 19:14 | disposition left against medical advice (07) ==
LOC: EEVIPCON 12:15 → M ED 12:15
DX: R50.9 Fever, unspecified (principal); N39.0 Urinary tract infection, site not specified; L03.116 Cellulitis of left lower limb; F19.10 Other psychoactive substance abuse, uncomplicated; F11.10 Opioid abuse, uncomplicated; F17.210 Nicotine dependence, cigarettes, uncomplicated; Z88.1 Allergy status to other antibiotic agents; Z88.8 Allergy status to other drugs, medicaments and biological substances
CPT/HCPCS: 76830; 76856; 80047; 80076; 81001; 83605; 83690; 84703; 85027; 87040; 87088; 87184; 87186; 93976; 96365; 99284; J0875

== ENCOUNTER 2023-01-30 12:54 | Emergency (ER) | payer OTHER, SELFPAY ==
[~2023-01-30] VITALS: Ht 157.5 cm; Wt 64.6 kg
[~2023-01-30 12:54] MED LIST changes: +IBUP200T46 PO
[2023-01-30 12:55] VITALS: BP 121/70; TEMP 97.5; O2SAT 98
[2023-01-30] MEDS ORDERED: METH-1177 PO (13:08)
== END 2023-01-30 17:09 | disposition left against medical advice (07) ==
LOC: M ED 12:54
DX: Z53.21 Procedure and treatment not carried out due to patient leaving prior to being seen by health care provider (principal)

== ENCOUNTER 2023-03-07 09:01 | Emergency (ER) | payer OTHER, SELFPAY ==
[~2023-03-07] VITALS: Ht 157.5 cm; Wt 66.5 kg
[~2023-03-07 09:01] MED LIST changes: +METH-1177 PO
[2023-03-07] MEDS ORDERED: DEPO150I12 IM (09:08)
[2023-03-07 13:34] VITALS: BP 135/85; TEMP 97.7; O2SAT 100
== END 2023-03-07 13:50 | disposition home or self-care (01) ==
LOC: M ED 09:01
DX: F32.A Depression, unspecified (principal); F17.200 Nicotine dependence, unspecified, uncomplicated; Z88.1 Allergy status to other antibiotic agents; Z88.8 Allergy status to other drugs, medicaments and biological substances; Z79.3 Long term (current) use of hormonal contraceptives; Z79.899 Other long term (current) drug therapy

== ENCOUNTER → 2024-10-03 | Outpatient (CLI) | payer OTHER ==
[~2024-10-03] MED LIST changes: +AZIT1PAC2 PO; +DEPO150I12 IM; +DOXY-441 PO; -DOXY-443 PO; -LIDO15SO PO; +LIDO15SO8 PO; +ONDA-282 PO; -ONDA4TAB6 PO; -ZITH1POW PO
== END ==
LOC: M RAD 15:28
PROVIDERS: ATTEND Student in an Organized Health Care Education/Training Program
DX: M54.50 Low back pain, unspecified (principal)